=== PATIENT | male | born 1950 | race Caucasian/White ===

== ENCOUNTER → 2017-01-07 | Outpatient (CLI) | payer MEDICARE ==
[~2017-01-07] MED LIST: CIPR500T3 PO; GLIP2.5T6 PO; HYDR-3713 PO; JANU50TA25 PO; LISI-538 PO; OMEP20CA3 PO; PERC5TAB6 PO; POTA4.25 PO; PRAV20TA2 PO; TYLE325C PO; VIAG100T PO; janumet OR; potassium OR
== END ==
LOC: M LAB 11:41
PROVIDERS: ATTEND Family Medicine
DX: E11.9 Type 2 diabetes mellitus without complications (principal)

== ENCOUNTER → 2017-01-07 | Outpatient (CLI) | payer MEDICARE ==
[2017-01-07 12:21] LABS: MEAN CORPUSCULAR HEMOGLOBIN 31.4 pg (27.0-33.0); MEAN CORPUSCULAR VOLUME 87.2 fl (80.0-96.0); RED CELL DISTRIBUTION WIDTH 13.1 % (11.5-14.5); WHITE BLOOD COUNT 4.8 K/mm3 (4.0-10.0)
[2017-01-07 12:24] LABS: INR 0.99
--- NOTE | 2017-01-07 12:50 | REP ---
Chest two views HISTORY: Hypertension Comparison: 05/05/2016 The lungs are clear. The heart is normal in size. The pulmonary vasculature is normal in appearance. Degenerative change is present in the thoracic spine. IMPRESSION: No acute disease. Signed by Norberto Painter MD 01/07/2017 12:41 P
[2017-01-07 12:54] LABS: ALBUMIN 4.3 GM/DL (3.2-5.2); ALBUMIN/GLOBULIN RATIO 1.43 (1.00-1.93); BILIRUBIN,TOTAL 0.9 MG/DL (0.2-1.0); CREATININE FOR GFR 1.43 MG/DL (0.70-1.30); GLOMERULAR FILTRATION RATE 52.7 (>49); TOTAL PROTEIN 7.3 GM/DL (6.4-8.2)
[2017-01-07 13:05] LABS: POTASSIUM SERUM 5.2 MEQ/L (3.5-5.1)
--- NOTE | 2017-01-07 22:28 | ECGEPIP ---
Stationary ECG Study [facility] Test Date: 2017-01-07 Pat Name: ANKUR MYERS Department: Room: - Gender: M Winemaker: : 1950 Requested By: Dixie Schofield Order Number: [id number] Reading MD: Srinivasa Mancuso Measurements Intervals [place] Rate: 52 P: 18 MN: 187 QRS: 28 QRSD: 125 T: 210 QT: 403 QTc: 376 Interpretive Statements Sinus bradycardia with occasional PVC IVCD Probable LVH with repolarization abnormality Cannot exclude prior anterior wall myocardial infarction Comparison tracing not available Electronically Signed On 01-07-2017 22:28:24 EDT by Srinivasa Mancuso
== END ==
LOC: M ADMPAT 10:22
PROVIDERS: ATTEND Orthopaedic Surgery
DX: Z01.818 Encounter for other preprocedural examination (principal); C61 Malignant neoplasm of prostate; E11.9 Type 2 diabetes mellitus without complications; M16.12 Unilateral primary osteoarthritis, left hip; Z79.899 Other long term (current) drug therapy

== ENCOUNTER → 2017-01-07 | Outpatient (CLI) | payer MEDICARE | LOC: M LAB 10:43 | PROVIDERS: ATTEND Urology | DX: C61 Malignant neoplasm of prostate (principal) ==

== ENCOUNTER → 2017-01-17 | Outpatient (CLI) | payer MEDICARE ==
[~2017-01-17] MED LIST changes: +COUM2.5T11 PO; +RANI15TA PO
--- NOTE | 2017-01-20 09:38 | SLEEPCENT ---
DATE OF STUDY: 01/17/2017 ORDERED BY: Estela Macario Nocturnal polysomnography was performed for evaluation of sleep apnea syndrome symptoms in this patient with a history of snoring and excess somnolence. 8 hours and 23 minutes of data were reviewed. There were 417 minutes of sleep identified. Sleep latency was prolonged at 41 minutes. Rapid eye movement (REM) latency was normal at 94 minutes. Sleep architecture was fairly good. There was some fragmentation early in the study, but 5 REM periods were idenified. Overall sleep efficiency was 83.7%. EKG showed a sinus rhythm with PVCs. Average heart rate 45 beats per minute. Rate ranged 40-62 beats per minute. EEG showed reasonably normal waveforms for awake and sleep. There were 174 respiratory events identified at 10 seconds in duration or greater for an apnea-hypopnea index of 25, the events were primarily obstructive, not exclusive to sleep stage, more frequent, but not exclusive to spine posture. Arousals from respiratory events occurred only 9.6 times per hour. Oxygen desaturations were seen, however, into the 70s. There was also some limb activity identified, but arousals from limb events were few. IMPRESSION: Moderate to severe obstructive sleep apnea syndrome (G47.33). Apnea-hypopnea index 25.0. RECOMMENDATION: The patient should be encouraged to return to the sleep disorder center for pressure therapy, in the interim alcohol and sedative avoidance should be practiced and cautioned exercised during the operation of motor vehicles. cc: Dixie Muir
== END ==
LOC: M SLEEP 20:00
PROVIDERS: ATTEND Nurse Practitioner Adult Health
DX: G47.33 Obstructive sleep apnea (adult) (pediatric) (principal)

== ENCOUNTER 2017-01-19 10:47 | Inpatient (IN) | payer MEDICARE ==
[2017-01-07 10:58] VITALS: BP 152/85
--- NOTE | 2017-01-13 13:30 | HPE ---
DATE OF ADMISSION: 01/19/2017 ATTENDING PHYSICIAN: Dr. Chandu Muir CHIEF COMPLAINT: Left hip pain and stiffness. HISTORY: This is a pleasant, 66-year-old male patient with progressively worsening left hip pain and stiffness. He has failed to improve with conservative management. He has pain with weightbearing activities and activities of daily living. He has elected for surgery for his continued symptoms. He has consented for a left total hip arthroplasty by Dr. Muir. X-rays of his left hip notable for end-stage degenerative changes of the left hip. Medical optimization, Dr. Gonzalez, not present for review today. ALLERGIES: SULFA MEDICATIONS. CURRENT MEDICATIONS: Include: - lidocaine 5%, apply as needed - hydrocodone 5/325 as needed for pain - Prilosec 20 mg 1 tablet every other day - lisinopril 20 mg 1 tablet in the evening - glipizide extended release 2.5 mg 1 tablet in the evening - pravastatin 20 mg 1 tablet every day - Janumet mg 1 tablet twice a day MEDICAL HISTORY: Includes myf-usharue-[id number] diabetes, hypertension, gastric reflux disease, elevated cholesterol, chronic incontinence, history of prostate cancer. SURGICAL HISTORY: Includes removal of his prostate and a vasectomy. SOCIAL HISTORY: He does not smoke. He does not use alcohol. He is currently retired. FAMILY HISTORY: Noncontributory. REVIEW OF SYSTEMS: Denies fever or chills. Denies chest pain, shortness breath or cough. Denies difficulty breathing. Denies abdominal pain. Notes chronic incontinence since his prostate surgery. Denies recent upper respiratory infection (URI) or urinary tract infection (UTI) symptoms. Has persistent pain in his left hip. He has pain with weightbearing activities on the left side. Denies nausea or vomiting. PHYSICAL EXAMINATION: Today reveals a well-nourished, well-developed, alert male patient. He ambulates with a slow gait. He favors his left side. Exam of the left hip reveals irritability on both internal and external rotation. There is decreased internal and external rotation, particularly decreased external rotation. The skin is intact. No erythema, edema or ecchymosis. He can sensate light touch in the left lower extremity. Neck is supple without adenopathy or jugular venous distention (JVD). Lungs are clear to auscultation, without rales or wheeze. Heart: Regular rate and rhythm. Abdomen: Bowel sounds are present. Current vital signs: Height 74 inches, weight 230 pounds. Temperature 97.8, blood pressure 129/80, pulse 69, respirations 16. LABORATORY DATA: PT is 13.2, is INR 0.99. Urine culture: No growth. Nasal culture: Normal handy. Urinalysis: Within normal limits. Glucose 122, BUN 29, creatinine 1.43, sodium 137, potassium 5.2. WBC count of 4.8, RBC count of 4.5, hemoglobin 14.3, hematocrit 39.8. Chest x-ray: No acute cardiopulmonary process noted. EKG: Sinus bradycardia with occasional PVCs. IMPRESSION: Symptomatic osteoarthritis of the left hip. PLAN: Consented for left total hip arthroplasty by Dr. Muir.
--- NOTE | 2017-01-16 14:50 | CR ---
DATE OF CONSULTATION: 01/16/2017 PREOPERATIVE EVALUATION CONSULTATION CHIEF COMPLAINT: Left hip pain. CONSULTING PHYSICIAN: Dr. Stefano Gonzalez SURGEON: Dr. Dixie Muir of [facility] PLANNED SURGERY: Total left hip replacement. OTHER CONSULTANTS: [facility] regarding risk of obstructive sleep apnea. DATE OF SURGERY: 01/19/2017 PAT: Completed on 01/07/2017 HISTORY OF PRESENT ILLNESS: Very pleasant 66-year-old gentleman who presents today for preoperative evaluation and consultation for planned left total hip replacement to be completed at [facility]. It is notable that the patient exerted himself over 3 METS on a regular basis prior to having increase in pain in his left hip and on evaluation felt to be appropriate for a total hip replacement. The patient did retired on 12/23/2016. He notes that he has been focusing more on his health since intermediate and the pain significantly limits his quality of life. Overall, the patient notes that his medical issues appear to be stable with the exception of his hip pain. He does have a question of obstructive sleep apnea and is being evaluated by [facility]. This is expected to happen prior to surgical intervention. Regarding his cardiac history, he does have a left bundle branch block on his EKG; however, this was fully evaluated with a nuclear stress test on 02/18/2016, which was felt to be low risk. He also had an echocardiogram at the same time, which showed minor changes, including possible grade 1 left ventricular diastolic dysfunction and mild left ventricular hypertrophy. However, again, he underwent cardiac consultation and is felt to be appropriate for surgery, as he again is now at this point in time. He does not have any chest pain or other new issues or concerns. He otherwise is not wheezing or have any acute respiratory issues. He has not had issues with anesthesia in the past. Again, he denies any other new symptoms or concerns. Most recent hemoglobin A1/c was also controlled at 6.8. He does watch his diet regarding his blood sugars. He does watch his diet regarding his blood sugars. He does have some chronic kidney disease with a GFR which is only minimally decreased at approximately 50. He does have a history of prostate cancer, status post prostatectomy and manages his lipids with pravastatin. Blood pressures have been extremely well controlled. Again, he denies high and low blood sugars. PAST MEDICAL HISTORY: 1. Type 2 diabetes -- last hemoglobin A1/c was 6.8, well controlled. 2. Left bundle branch block -- stress testing and echocardiogram showed low risk in 2016. 3. History of prostate cancer, status post prostatectomy with Dr. Woods on 05/13/2016. 4. Gastroesophageal reflux disease (GERD). Has done well with Zantac. 5. Chronic kidney disease, generally stable, baseline GFR approximately 50. 6. Hypertension. 7. Hyperlipidemia. PAST SURGICAL HISTORY: 1. Prior vasectomy. 2. Robotic prostatectomy on 05/13/[address] Woods. 3. In 2016 a left ureteroscope and stent placement. MEDICATIONS: - multivitamin taken daily - Zantac 150 mg by mouth twice a day (prior took 20 mg of Prilosec twice a day) - Viagra 100 mg as needed - pravastatin 20 mg daily - lisinopril 20 mg daily - Janumet XR one tablet twice a day - Flomax 0.4 mg daily ALLERGIES: SULFA causes hives. SOCIAL HISTORY: The patient lives with his Molly and they have three children. 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 He previously was involved in riding his [employer] but had to sell it due to osteoarthritis. The patient has never smoked. He occasionally drinks beer. FAMILY HISTORY: His father is alive over 90 and has chronic obstructive pulmonary disease (COPD) and uses oxygen, continues to smoke. Mother from surgical abdomen at age 80 after hip surgery. All three children are healthy. REVIEW OF SYSTEMS: As per history of present illness. Otherwise 10-system review is completely negative. PHYSICAL EXAMINATION: VITAL SIGNS: Blood pressure 124/64, pulse 62, height is 6 feet 2 inches and weighing 233 pounds. Oxygen saturation is 98% on room air. Body Mass Index (BMI) of 29.9. GENERAL: He appears well. No acute distress. Nontoxic. Alert and oriented times three. No signs of acute issues. HEENT: Pupils are equal, round and reactive to light and accommodation. Extraocular motions intact. No lesions of the lid or conjunctivae. Oral cavity and oropharynx are benign. Nares are benign. Tympanic membranes are benign. NECK: Supple. No lymphadenopathy or thyromegaly. HEART: Regular rate and rhythm. S1, S2. There are no murmurs, rubs or gallops. LUNGS: Clear to auscultation bilaterally. No rales, rhonchi or wheezes. ABDOMEN: Soft, nontender, nondistended. EXTREMITIES: No clubbing, cyanosis or edema. NEUROLOGIC: Exam is nonfocal. Good strength and sensation throughout. He does have an abnormal gait due to pain in his left hip. Otherwise, good cerebellar function and balance. PREOPERATIVE LABORATORIES: Completed at [facility], reviewed. EKG also showed left bundle branch block. No change when compared to previous on file. ASSESSMENT AND PLAN: 1. Preoperative evaluation and consultation. The patient has a number of medical issues, as outlined; however, appears to be optimized for surgical intervention planned at [facility]. The patient understands the risk of surgery. This is an intermediate risk surgery in an intermediate risk patient. Again, before surgical intervention, there appears to be a referral from [facility] as well, which we will evaluate for obstructive sleep apnea. If there are new problems or issues, he will let me know. 2. Pain in the left hip. The patient apparently has significant osteoarthritis and is undergoing total hip replacement and looks forward to this. 3. Gastroesophageal reflux disease (GERD). Has been using proton pump inhibitor every other day but does note symptoms if he misses it. He is going to work on weaning to Zantac 150 mg twice a day instead. He will let us know how he is doing. 4. Type 2 diabetes. This has been controlled. Last hemoglobin A1/c was 6.8. He is going to hold his glipizide and Janumet the night prior to surgery and will need his blood sugars watched closely perioperatively. 5. Hypertension. The patient had excellent blood pressure control on present medication, we will continue. 6. Left bundle branch block. This is known. He had evaluated noted above and we will monitor. 7. Hyperlipidemia. Doing well on pravastatin. We will monitor. 8. History of prostate cancer. No evidence of recurrence. Had seen Dr. Woods and we will continue this as well as his other medications for urinary and erectile dysfunction issues. 9. Snoring. The patient is being evaluated by [facility] for possible sleep apnea. We will continue to monitor. 10. Ongoing care. I am going to see him again in three months with CMP, lipids, hemoglobin A1/c and a CBC. If there are new issues or concerns sooner, or if there is change in his status, he will let me know.
[~2017-01-19] VITALS: Ht 190.5 cm; Wt 103.0 kg
[2017-01-19] VITALS (7 sets, daily range): BP systolic 115–151; BP diastolic 72–89; O2SAT 97
[~2017-01-19 10:47] MED LIST changes: -COUM2.5T11 PO; +PERC5TAB12 PO; -PERC5TAB6 PO; -RANI15TA PO; +ceFAZolin 1GM INJ (J0690) As Ordered ONE
[2017-01-19] MEDS ORDERED: LR 1,000 ML IV SCH ×3 (11:00→18:00)
[2017-01-19] MEDS ORDERED: LR 1,000 ML IV ONE (11:00)
[2017-01-19] MEDS ORDERED: ACETAMINOPHEN 500 MG TAB PO ONE (11:00)
[2017-01-19] MEDS ORDERED: RANI15TA PO (11:22)
[2017-01-19] MEDS ORDERED: TRANEXAMIC ACID 100 MG/ML 10ML VIAL As Ordered ONE (13:23)
[2017-01-19] MEDS ORDERED: EPINEPHrine INJ 1 MG/ML 1ML AMP As Ordered ONE (13:23)
[2017-01-19] MEDS ORDERED: ePHEDrine SULFATE 25 MG/5 ML(5MG/ML) SYRINGE As Ordered ONE ×2 (14:31→15:14)
[2017-01-19] MEDS ORDERED: PROPOFOL 200 MG/20 ML VIAL As Ordered ONE ×4 (14:31→16:39)
[2017-01-19] MEDS ORDERED: MIDAZOLAM INJ 2 MG/2 ML VIAL (J2250) As Ordered ONE (14:31)
[2017-01-19] MEDS ORDERED: fentaNYL 100 MCG/2 ML INJECTION (J3010) As Ordered ONE ×2 (14:31→16:20)
[2017-01-19] MEDS ORDERED: GLYCOPYRROLATE INJ 0.2 MG/ML 2 ML VIAL As Ordered ONE (14:57)
[2017-01-19] MEDS ORDERED: MORPHINE 1MG/ML IN 0.9% NACL 100ML IV BAG As Ordered ONE (16:29)
[2017-01-19] MEDS ORDERED: ONDANSETRON 4MG/2ML VIAL (J2405) IV PRN ×2 (17:45→18:00)
[2017-01-19] MEDS ORDERED: PERCOCET 5MG/325MG TAB PO PRN (17:45)
[2017-01-19] MEDS ORDERED: fentaNYL 100 MCG/2 ML INJECTION (J3010) IV PRN (17:45)
[2017-01-19] MEDS ORDERED: HYDROmorphone HCL 1 MG/ML SYRINGE (J1170) IV PRN (17:45)
[2017-01-19] MEDS ORDERED: FLEET ENEMA PR PRN (18:00)
[2017-01-19] MEDS ORDERED: ACETAMINOPHEN TAB 650MG DOSE (2X325MG) PO PRN (18:00)
[2017-01-19] MEDS ORDERED: NALOXONE INJ 0.4 MG/1 ML VIAL (J2310) IV PRN (18:00)
[2017-01-19] MEDS ORDERED: NALBUPHINE HCL 10 MG/ML AMP (J2300) IV PRN (18:00)
[2017-01-19] MEDS ORDERED: diphenhydrAMINE INJ 50MG/ML VIAL (J1200) IV PRN (18:00)
[2017-01-19] MEDS ORDERED: EPIDURAL/PCA KEYS XX PRN (18:00)
[2017-01-19] MEDS ORDERED: MORPHINE 1MG/ML IN 0.9% NACL 100ML IV BAG IV PRN (18:00)
[2017-01-19] MEDS ORDERED: WARFARIN SOD 5 MG TAB PO SCH (21:00)
[2017-01-20 03:00] VITALS: BP 134/80
--- NOTE | 2017-01-20 05:25 | CR.PDOC ---
[facility] Consultation Consultation DATE OF CONSULTATION: PRIMARY CARE PHYSICIAN: Stefano Gonzalez REFERRING PROVIDER: Chandu Muir ATTENDING PHYSICIAN: Chandu Muir REASON FOR CONSULTATION/CHIEF COMPLAINT:, Medical management. HISTORY OF PRESENT ILLNESS: [ 66-year-old male status post left total hip replacement yesterday was consulted for postoperative medical management. Patient had severe osteoarthritis part last 5 years which was getting worse and this and ultimately get the needed hip replacement done yesterday. Denies any fever, chills, lightheadedness, dizziness. He does not have any chest pain or other new issues He does have a history of prostate cancer, status post prostatectomy and manages his lipids with pravastatin. PAST MEDICAL HISTORY: GERD, hypertension, hyperlipidemia, chronic kidney disease PAST SURGICAL HISTORY: Procedure prostatectomy MEDICATIONS: - multivitamin taken daily - Zantac 150 mg by mouth twice a day (prior took 20 mg of Prilosec twice a day) - Viagra 100 mg as needed - pravastatin 20 mg daily - lisinopril 20 mg daily - Janumet XR one tablet twice a day - Flomax 0.4 mg daily ALLERGIES: SULFA causes hives. SOCIAL HISTORY: Lives with his family, independent for ADLs. Nonsmoker. no Alcohol or drugs. FAMILY HISTORY: His father is alive over 90 and has chronic obstructive pulmonary disease (COPD) and uses oxygen, continues to smoke. Mother from surgical abdomen at age 80 after hip surgery. All three children are healthy. REVIEW OF SYSTEMS: No fever or cough. No chest pain or palpitation. No diarrhea or constipation. No cough or shortness of breath. No focal weakness. No depression or suicidal ideation. No rash or ulcers PHYSICAL EXAMINATION: No apparent distress. Vital signs are stable. PERRLA, EOMI , no crackles or wheezes. S1, S2 regular. No murmurs, thrills or gallops. Abdomen soft, nontender. Extremity no edema or cyanosis. Left extremity, not able to move due to a status post surgery ASSESSMENT/PLAN: 1. 66-year-old male, history of osteoarthritis, presented with the elective total hip replacement on left side. 2. Total hip replacement = anticoagulation and weightbearing as per orthopedic physician Diabetes mellitus. Continue sliding scale insulin Hypertension. Continue with the lisinopril. Vital Signs/I&O Vital Signs Date Time Temp Pulse Resp B/P (MAP) Pulse Ox O2 Delivery O2 Flow Rate FiO2 6/27/17 03:00 98.3 64 14 134/80 (98) 98 Nasal Cannula 2.0 I&O- Last 24 Hours up to 6 AM 01/20/17 06:00 Intake Total 3165 ml Output Total 850 ml Balance 2315 ml Laboratory Data Labs 24H Laboratory Tests 2 01/19/17 18:54: Bedside Glucose (Misc Panel) 162H 01/19/17 19:46: Bedside Glucose (Misc Panel) 152H CBC/BMP Laboratory Tests 01/19/17 11:06 Allergies Coded Allergies: Sulfa Antibiotics (Verified Allergy, Intermediate, hives, 01/19/17) Home Medications Scheduled (Tylenol) 325 Mg Cap, 650 MG PO BID, (Reported) Glipizide (Glipizide ER) 2.5 Mg Tab, 2.5 MG PO QPM, (Reported) Lisinopril (Lisinopril) 20 Mg Tab, 20 MG PO QPM, (Reported) Potassium Citrate (Potassium Citrate ER) 15 Meq Tab, 2 TAB PO BID, (Reported) Pravastatin Sodium (Pravastatin Sodium) 20 Mg Tab, 20 MG PO DAILY, (Reported) Ranitidine Hcl (Zantac) 150 Mg Tab, 1 TAB PO BID, (Reported) Sitagliptin/Metformin (Janumet Xr 50-1000 mg) 1 Tab Tab, PO BID, #180 (Reported) CHRISTINA ALDRIDGE MD Jan 20, 2017 05:25
[2017-01-20] MEDS ORDERED: ONDANSETRON 4 MG TAB (S0181) PO PRN (06:45)
[2017-01-20 07:00] VITALS: BP 133/84
[2017-01-20 07:33] LABS: MEAN CORPUSCULAR HEMOGLOBIN 31.2 pg (27.0-33.0); MEAN CORPUSCULAR HGB CONC 35.5 g/dl (32.0-36.5); MEAN CORPUSCULAR VOLUME 87.9 fl (80.0-96.0); RED CELL DISTRIBUTION WIDTH 13.1 % (11.5-14.5); WHITE BLOOD COUNT 9.4 K/mm3 (4.0-10.0)
[2017-01-20 07:41] LABS: INR 1.16
[2017-01-20 07:42] LABS: ANION GAP 7 MEQ/L (8-16); BLOOD UREA NITROGEN 17 MG/DL (7-18); CALCIUM LEVEL 8.1 MG/DL (8.8-10.2); CARBON DIOXIDE LEVEL 27 MEQ/L (21-32); CHLORIDE LEVEL 102 MEQ/L (98-107); CREATININE FOR GFR 1.27 MG/DL (0.70-1.30); GLOMERULAR FILTRATION RATE > 60.0 (>49); GLUCOSE, FASTING 247 MG/DL (80-110); POTASSIUM SERUM 4.7 MEQ/L (3.5-5.1); SODIUM LEVEL 136 MEQ/L (136-145)
[2017-01-20 10:00] VITALS: BP 143/84
[2017-01-20] MEDS: MIRALAX *UNIT DOSE* 17GM PACKET PO SCH (10:14)
[2017-01-20] MEDS: SENOKOT S TAB PO SCH ×2 (10:14→20:22)
[2017-01-20] MEDS: MOM 30ML SUSPENSION UDC PO SCH (10:14)
[2017-01-20] MEDS: PERCOCET 5MG/325MG TAB PO PRN ×2 (10:15→17:05)
[2017-01-20] MEDS: CHLORASEPTIC SPRAY MT PRN (10:15)
[2017-01-20 10:29] VITALS: O2SAT 96
--- NOTE | 2017-01-20 10:30 | RO ---
DATE OF PROCEDURE: 01/19/2017 PREPROCEDURE DIAGNOSIS: Left hip degenerative arthritis. POSTPROCEDURE DIAGNOSIS: Left hip degenerative arthritis. PROCEDURE: Left total hip arthroplasty using a size 8 [place] stem, high offset with a 1.5 neck and a 36 mm ball with a 56 mm Gription cup with a 36 neutral liner. Prosthesis made by [employer]. SURGEON: Dr. Dixie Muir. CURBER: Mr. Corona Diaz PA-C ANESTHESIA: Spinal. SPECIMENS: Femoral head. COMPLICATIONS: None. ESTIMATED BLOOD LOSS: 300 mL. DESCRIPTION OF PROCEDURE: Antibiotics were given intravenously preoperatively. Then a successful spinal anesthetic was induced. A Ryan catheter was placed and he was placed in an lateral decubitus position with a Shawmut hip positioner utilized. Down-leg well padded, specially the femoral peroneal nerve on the down leg and an axillary roll ws utilized. His left hip area was then carefully prepped and draped in the usual sterile fashion. After an appropriate time out, the longitudinal incision was made for a direct lateral approach to the hip slightly curved obliquely. Bovie catheter was used to coagulate the crossing vessels down to the tensor fascia. The tensor fascia lateral muscle actually was very hypertrophic and most of the fascia was seen to be mainly muscle such that we were dividing mainly through muscular tissue down to near the gluteus maximum insertion. His tensor fascia was excessively tight anteriorly. But eventually we were able to understand the anatomy and then split the gluteus medias in the anterior one-third, posterior two-third junction and then divided the underlying gluteus minimus and anterior hip capsule, carefully dissected the tissues off the proximal femurs and externally rotated the hip. At first it was quite difficult to dislocation this hip because it actually turns out he had circumferential rim osteophytes, especially anteriorly which made it very difficult for us to dislocate the hip. But eventually I had to use an osteotome and remove some of the either calcified labrum or rim osteophytes from within the arthrotomy incision. It was difficulty to do so but eventually by using the curved osteotome and the rongeurs, we were able to remove the bony impingement such that I could dislocate the hip anteriorly and place the leg into a leg bag. The piriformis fossa was defined and the starter reamer placed followed by the canal finding reamer. The eventually we began reaming up to a size #8 reamer proximal neck. Osteotomy of the femur was then performed and we broached up to a size 8 eventually. He had some abnormal anatomy also no the neck of the femur. It was very widened and thickened. But eventually we were able to established our orientation and get the broach seated properly. Then we had some difficulty again also exposing the acetabulum. We had to perform a labral excision 360 degrees and then the inferior capsule had to be released and subperiosteal dissection around the capsule on the capsular attachments and proximal femur had to be utilized in order to mobilize the femur enough so that we access the acetabulum to begin reaming. We were about a fingerbreadth above the lesser trochanter by direct palpation. But eventually we were able to get exposure by actually flexing the knee and keep it in adduction. Them we began reaming beginning with a 48 mm reamer advanced up to a 55. A trial 56 actually fit nicely but there was a very large anterior osteophyte as well as inferior osteophyte. But eventually, we were able to get our orientation using the extramedullary jig to help us set and determine our abduction and version. We copiously pulsatile lavaged out the area, irrigated out the acetabulum and then used the 56 Gription cup with three holes in case we needed a screw fixation. The cup was implanted and it fit actually very snuggly and nicely in good position. The large anterior rim osteophytes were debrided and removed with a curve osteotome as well as inferiorly. The real polyethylene was then placed after we irrigate and began trialing with a #8 broach. The 1.5 standard offset stem showed that we actually had fairly good soft tissue tension in terms of telescoping but he needed better clearance anteriorly. Because as we flexed adduction and internally rotated the hip, he tended to dislocate posteriorly. Thus, there was no impingement with extension and external rotation, actually just barely touched this. A higher offset neck was trialled and this gave better clearance. He could actually adduct with flexion beyond 90 degrees with internal rotation to about 35 degrees before he would impinge. Again, there was minimal telescoping so I did not think we needed to increase his leg length. So we elected to go with that size prosthesis. We removed the trial broach and copiously irrigated out the proximal femoral canal, introduced the #8 femoral stem. This seated nicely. We irrigated again and placed the 56 mm ball, impacted it, and then reduced the hip. We copiously irrigated of course before we did reduce the hip again. Then again he was brought though a range of motion. He was very stable in extension, external rotation, and flexion and internal rotation up to about 30 degrees internal rotation. We then carefully began closing the gluteus minimus and minimus back anatomically with several interrupted #1 PDS sutures, irrigating between layers. Then we closed the tensor fascia with severe interrupted #1 PDS sutures irrigating between layers. We then closed the deep subdermal tissues with interrupted #2-0 PDS sutures. The skin was closed with dot, covered with adaptic and a dry sterile bulking dressing. He was then turned supine and transferred to the recovery room in stable condition. There were no intraoperative complications. Mr. Corona Diaz was critical to the success of this procedure, as it was actually quite a difficult procedure, by helping me manipulate the leg helping to provide appropriate soft tissue retraction at the appropriate time such that I could perform the operating smoothly and efficiently. Dr. Agusto Merritt also scrubbed in for a time to assist.
[2017-01-20] MEDS ORDERED: GLUCAGON FOR INJ 1 MG VIAL (J1610) SC PRN (11:45)
[2017-01-20] MEDS ORDERED: GLUCOSE 4 GM CHEW TABLET PO PRN (11:45)
[2017-01-20] MEDS ORDERED: DEXTROSE 50% 50 ML SYRINGE IV PRN (11:45)
--- NOTE | 2017-01-20 12:47 | REP ---
Clinical: Status post arthroplasty. Technique: AP and cross-table lateral views. Findings: The patient is status post left hip replacement with normal positioning and appearance to the femoral and acetabular components. Overlying postsurgical changes appreciated. Impression: Satisfactory left hip replacement radiographs. Signed by Alf Angel MD 01/20/2017 12:39 P
[2017-01-20] MEDS: FAMOTIDINE 20 MG TAB PO SCH ×2 (12:54→20:21)
[2017-01-20] MEDS: PRAVASTATIN 20 MG TAB PO SCH (12:54)
[2017-01-20] MEDS: HumaLOG INSULIN (NovoLOG) PER UNIT SC SCH ×3 (12:55→20:28)
[2017-01-20 14:00] VITALS: BP 139/71
--- NOTE | 2017-01-20 16:21 | IPNPDOC ---
Subjective Date Seen The patient was seen on 01/20/17. Subjective Chief Complaint/HPI The patient is a 66-year-old male admitted with a reason for visit of Arthritis Left Hip. General: Denies: Chills, Night Sweats Constitutional: Denies: Chills, Fever Eyes: Denies: Pain, Vision change ENT: Denies: Head Aches, Ear Pain Skin: Denies: Rash, Lesions Pulmonary: Denies: Dyspnea, Cough Cardiovascular: Denies: Chest Pain, Palpitations Gastrointestinal: Denies: Nausea, Vomiting, Abdominal Pain Genitourinary: Denies: Dysuria, Frequency Objective Physical Examination General Exam: Positive: Alert, Cooperative, No Acute Distress ENT Exam: Positive: Atraumatic, Mucous membr. moist/pink Neck Exam: Negative: JVD Chest Exam: Positive: Clear to auscultation, Normal air movement Heart Exam: Positive: Rate Normal, Normal S1, Normal S2 Abdomen Exam: Positive: Soft, Negative: Tenderness Extremity Exam: Positive: Other (left hip with limited range of motion secondary to recent surgery. Neurovascularly intact distally.) Psych Exam: Positive: Oriented x 3 Assessment /Plan Plan/VTE VTE Prophylaxis Ordered?: Yes Plan S/P Left Hip Replacement Pain Mgmt, DVT prophylaxis as per surgery Hypertension Cont Lisinopril Diabetes Mellitus Continue insulin sliding scale Dyslipidemia Continue statin GERD Pepcid VS, I&O, 24H, Fishbone Vital Signs/I&O Vital Signs Date Time Temp Pulse Resp B/P (MAP) Pulse Ox O2 Delivery O2 Flow Rate FiO2 01/20/17 14:00 98.8 85 15 139/71 (93) 97 Room Air 01/20/17 07:00 2.0 I&O- Last 24 Hours up to 6 AM 01/20/17 06:00 Intake Total 3405 ml Output Total 1250 ml Balance 2155 ml Laboratory Data 24H LABS Laboratory Tests 2 01/19/17 18:54: Bedside Glucose (Misc Panel) 162H 01/19/17 19:46: Bedside Glucose (Misc Panel) 152H 01/20/17 07:11: Prothrombin Time 14.9H, Prothromb Time International Ratio 1.16, Anion Gap 7L, Glomerular Filtration Rate > 60.0, Blood Urea Nitrogen 17, Creatinine 1.27, Sodium Level 136, Potassium Level 4.7, Chloride Level 102, Carbon Dioxide Level 27, Calcium Level 8.1L 01/20/17 11:25: Bedside Glucose (Misc Panel) 256H CBC/BMP Laboratory Tests 01/20/17 07:11 Red Blood Count 3.86 L, Mean Corpuscular Volume 87.9, Mean Corpuscular Hemoglobin 31.2, Mean Corpuscular Hemoglobin Concent 35.5, Red Cell Distribution Width 13.1, Calcium Level 8.1 L STEVENSON MAJOR MD Jan 20, 2017 16:21
[2017-01-20] MEDS ORDERED: WARFARIN SOD 5 MG TAB PO ONE (17:00)
[2017-01-20] MEDS: LISINOPRIL 20 MG TAB PO SCH (20:22)
[2017-01-20 22:00] VITALS: BP 128/72
[2017-01-21 06:00] VITALS: BP 99/57
[2017-01-21 07:03] LABS: INR 1.51
[2017-01-21 07:04] LABS: MEAN CORPUSCULAR HEMOGLOBIN 31.2 pg (27.0-33.0); MEAN CORPUSCULAR HGB CONC 35.9 g/dl (32.0-36.5); RED CELL DISTRIBUTION WIDTH 12.8 % (11.5-14.5); WHITE BLOOD COUNT 10.7 K/mm3 (4.0-10.0)
[2017-01-21 07:06] LABS: CALCIUM LEVEL 8.3 MG/DL (8.8-10.2); CREATININE FOR GFR 1.36 MG/DL (0.70-1.30); GLOMERULAR FILTRATION RATE 55.8 (>49); POTASSIUM SERUM 4.4 MEQ/L (3.5-5.1)
[2017-01-21] MEDS: MIRALAX *UNIT DOSE* 17GM PACKET PO SCH (08:07)
[2017-01-21] MEDS: MOM 30ML SUSPENSION UDC PO SCH (08:07)
[2017-01-21] MEDS: PRAVASTATIN 20 MG TAB PO SCH (08:08)
[2017-01-21] MEDS: FAMOTIDINE 20 MG TAB PO SCH ×2 (08:08→21:12)
[2017-01-21] MEDS: SENOKOT S TAB PO SCH ×2 (08:08→21:12)
[2017-01-21] MEDS: HumaLOG INSULIN (NovoLOG) PER UNIT SC SCH ×4 (08:08→21:00)
[2017-01-21] MEDS: PERCOCET 5MG/325MG TAB PO PRN ×2 (08:08→21:13)
[2017-01-21] MEDS: CHLORASEPTIC SPRAY MT PRN (08:09)
[2017-01-21 09:04] VITALS: O2SAT 93
--- NOTE | 2017-01-21 12:19 | IPNPDOC ---
Subjective Date Seen The patient was seen on 01/21/17. Subjective Chief Complaint/HPI The patient is a 66-year-old male admitted with a reason for visit of Arthritis Left Hip. General: Denies: Chills, Night Sweats Constitutional: Denies: Chills, Fever Eyes: Denies: Pain, Vision change ENT: Denies: Head Aches, Ear Pain Skin: Denies: Rash, Lesions Pulmonary: Denies: Dyspnea, Cough Cardiovascular: Denies: Chest Pain, Palpitations Gastrointestinal: Denies: Nausea, Vomiting Genitourinary: Denies: Dysuria, Frequency Objective Physical Examination General Exam: Positive: Alert, Cooperative, No Acute Distress ENT Exam: Positive: Atraumatic, Mucous membr. moist/pink Neck Exam: Negative: JVD Chest Exam: Positive: Clear to auscultation, Normal air movement Heart Exam: Positive: Rate Normal, Normal S1, Normal S2 Abdomen Exam: Positive: Soft, Negative: Tenderness Extremity Exam: Positive: Other (left hip with limited range of motion secondary to recent surgery. Neurovascularly intact distally.) Psych Exam: Positive: Oriented x 3 Assessment /Plan Plan/VTE VTE Prophylaxis Ordered?: Yes Plan S/P Left Hip Replacement Pain Mgmt, DVT prophylaxis as per surgery Hypertension Cont Lisinopril Diabetes Mellitus Continue insulin sliding scale Dyslipidemia Continue statin GERD Pepcid VS, I&O, 24H, Fishbone Vital Signs/I&O Vital Signs Date Time Temp Pulse Resp B/P (MAP) Pulse Ox O2 Delivery O2 Flow Rate FiO2 01/21/17 09:08 93 Room Air 01/21/17 08:38 14 01/21/17 06:00 98.4 74 99/57 (71) 01/20/17 07:00 2.0 I&O- Last 24 Hours up to 6 AM 01/21/17 06:00 Intake Total 1080 ml Output Total 1525 ml Balance -445 ml Laboratory Data 24H LABS Laboratory Tests 2 01/20/17 16:41: Bedside Glucose (Misc Panel) 211H 01/20/17 20:07: Bedside Glucose (Misc Panel) 175H 01/21/17 06:18: Prothrombin Time 18.3H, Prothromb Time International Ratio 1.51, Anion Gap 5L, Glomerular Filtration Rate 55.8, Blood Urea Nitrogen 20H, Creatinine 1.36H, Sodium Level 135L, Potassium Level 4.4, Chloride Level 100, Carbon Dioxide Level 30, Calcium Level 8.3L 01/21/17 11:06: Bedside Glucose (Misc Panel) 205H CBC/BMP Laboratory Tests 01/21/17 06:18 Red Blood Count 3.49 L, Mean Corpuscular Volume 87.0, Mean Corpuscular Hemoglobin 31.2, Mean Corpuscular Hemoglobin Concent 35.9, Red Cell Distribution Width 12.8, Calcium Level 8.3 L STEVENSON MAJOR MD Jan 21, 2017 12:19
[2017-01-21 14:00] VITALS: BP 117/59
[2017-01-21] MEDS ORDERED: WARFARIN SOD 7.5 MG TAB PO ONE (17:00)
[2017-01-21 21:00] VITALS: O2SAT 96
[2017-01-21 21:12] VITALS: BP 142/67
[2017-01-21] MEDS: LISINOPRIL 20 MG TAB PO SCH (21:12)
[2017-01-21 22:00] VITALS: BP 117/70
[2017-01-22 06:00] VITALS: BP 112/65
[2017-01-22 06:32] LABS: MEAN CORPUSCULAR HEMOGLOBIN 31.4 pg (27.0-33.0); MEAN CORPUSCULAR HGB CONC 36.2 g/dl (32.0-36.5); MEAN CORPUSCULAR VOLUME 86.8 fl (80.0-96.0); RED CELL DISTRIBUTION WIDTH 13.1 % (11.5-14.5); WHITE BLOOD COUNT 7.8 K/mm3 (4.0-10.0)
[2017-01-22 06:40] LABS: INR 1.65
[2017-01-22 06:41] LABS: ANION GAP 3 MEQ/L (8-16); BLOOD UREA NITROGEN 20 MG/DL (7-18); CALCIUM LEVEL 8.3 MG/DL (8.8-10.2); CARBON DIOXIDE LEVEL 30 MEQ/L (21-32); CHLORIDE LEVEL 103 MEQ/L (98-107); CREATININE FOR GFR 1.24 MG/DL (0.70-1.30); GLOMERULAR FILTRATION RATE > 60.0 (>49); GLUCOSE, FASTING 178 MG/DL (80-110); POTASSIUM SERUM 4.5 MEQ/L (3.5-5.1); SODIUM LEVEL 136 MEQ/L (136-145)
[2017-01-22] MEDS ORDERED: COUM2.5T17 PO (07:28)
[2017-01-22] MEDS ORDERED: PERC5TAB12 PO (07:28)
[2017-01-22] MEDS: PERCOCET 5MG/325MG TAB PO PRN (07:29)
[2017-01-22] MEDS: HumaLOG INSULIN (NovoLOG) PER UNIT SC SCH (07:30)
[2017-01-22 08:00] VITALS: O2SAT 98
[2017-01-22] MEDS: MOM 30ML SUSPENSION UDC PO SCH (08:45)
[2017-01-22] MEDS: MIRALAX *UNIT DOSE* 17GM PACKET PO SCH (08:46)
[2017-01-22] MEDS: PRAVASTATIN 20 MG TAB PO SCH (08:46)
[2017-01-22] MEDS: SENOKOT S TAB PO SCH (08:46)
[2017-01-22] MEDS: FAMOTIDINE 20 MG TAB PO SCH (08:46)
--- NOTE | 2017-01-22 15:58 | IPNPDOC ---
Subjective Date Seen The patient was seen on 01/22/17. Subjective Chief Complaint/HPI The patient is a 66-year-old male admitted with a reason for visit of Arthritis Left Hip. General: Denies: Chills, Night Sweats Constitutional: Denies: Chills, Fever Eyes: Denies: Pain, Vision change ENT: Denies: Head Aches, Ear Pain Skin: Denies: Rash, Lesions Pulmonary: Denies: Dyspnea, Cough Cardiovascular: Denies: Chest Pain, Palpitations Gastrointestinal: Denies: Nausea, Vomiting Genitourinary: Denies: Dysuria, Frequency Objective Physical Examination General Exam: Positive: Alert, Cooperative, No Acute Distress ENT Exam: Positive: Atraumatic, Mucous membr. moist/pink Neck Exam: Negative: JVD Chest Exam: Positive: Clear to auscultation, Normal air movement Heart Exam: Positive: Rate Normal, Normal S1, Normal S2 Abdomen Exam: Positive: Soft, Negative: Tenderness Extremity Exam: Positive: Other (left hip with limited range of motion secondary to recent surgery. Neurovascularly intact distally.) Psych Exam: Positive: Oriented x 3 Assessment /Plan Plan/VTE VTE Prophylaxis Ordered?: Yes Plan S/P Left Hip Replacement Pain Mgmt, DVT prophylaxis as per surgery Chronic thrombocytopenia, stable The patient's platelet count has been noted to be within the 80,000-120,000 range since 2002 He has no bleeding at this time or complaints of easy bruising However, given that the patient will be on DVT prophylaxis with Coumadin-I did discuss the increased risk of bleeding with this, especially if his platelet count was to drift down further I have advised the patient to follow-up with his primary care physician within one week for further evaluation of his CBC in view of his concurrent anticoagulation use Hypertension Cont Lisinopril Diabetes Mellitus Continue insulin sliding scale Dyslipidemia Continue statin GERD Pepcid VS, I&O, 24H, Fishbone Vital Signs/I&O Vital Signs Date Time Temp Pulse Resp B/P (MAP) Pulse Ox O2 Delivery O2 Flow Rate FiO2 01/22/17 08:00 98 Room Air 01/22/17 07:59 14 01/22/17 06:00 98.2 69 112/65 (81) 01/20/17 07:00 2.0 I&O- Last 24 Hours up to 6 AM 01/22/17 05:59 Intake Total 2400 ml Output Total 1200 ml Balance 1200 ml Laboratory Data 24H LABS Laboratory Tests 2 01/21/17 16:57: Bedside Glucose (Misc Panel) 207H 01/21/17 19:57: Bedside Glucose (Misc Panel) 190H 01/22/17 06:14: Prothrombin Time 19.6H, Prothromb Time International Ratio 1.65, Anion Gap 3L, Glomerular Filtration Rate > 60.0, Blood Urea Nitrogen 20H, Creatinine 1.24, Sodium Level 136, Potassium Level 4.5, Chloride Level 103, Carbon Dioxide Level 30, Calcium Level 8.3L CBC/BMP Laboratory Tests 01/22/17 06:14 Red Blood Count 3.05 L, Mean Corpuscular Volume 86.8, Mean Corpuscular Hemoglobin 31.4, Mean Corpuscular Hemoglobin Concent 36.2, Red Cell Distribution Width 13.1, Calcium Level 8.3 L STEVENSON MAJOR MD Jan 22, 2017 15:58
--- NOTE | 2017-01-26 10:01 | DSES ---
DATE OF ADMISSION: 01/19/2017 DATE OF DISCHARGE: 01/22/2017 ATTENDING PHYSICIAN: Dr. Chandu Muir ADMITTING DIAGNOSIS: Osteoarthritis left hip. OTHER DIAGNOSES: 1. Left bundle branch block. 2. Iuv-wzykoif-dkhgcctsk diabetes. 3. Hypertension. 4. Gastric reflux disease. 5. Elevated cholesterol. 6. Chronic incontinence. 7. History of prostate cancer. 8. Chronic kidney disease. 9. Chronic thrombocytopenia. DISCHARGE DIAGNOSIS: Osteoarthritis left hip status post left total hip arthroplasty. OPERATION PERFORMED: Left total hip arthroplasty. HISTORY: This a pleasant, 66-year-old male patient with progressively worsening left hip pain and stiffness who failed to improve with conservative management. He was admitted for a left hip replacement electively on the left side. HOSPITAL COURSE: The patient was admitted on day of surgery, underwent a left total hip arthroplasty, which was uneventful. He did well in the postoperative period. His hospital course was without complications. He was up with physical therapy per their protocol. His pain was controlled. On day of discharge, he was doing well. Weightbearing as tolerated on his left lower extremity. He will use adjusted dose Coumadin and thromboembolic deterrent (FAREED) stockings for 30 days postoperatively for deep venous thrombosis (DVT) prophylaxis. He will use oral pain medications for pain control and he will resume his preoperative medications and diet. He was given instructions to include but not limited to wound monitoring and activity limitations. Please refer to the medical record for further detail. He will follow up in our office 10-14 days for surgical followup.
== END 2017-01-22 10:50 | disposition home health service (06) | DRG 470 ==
LOC: M OR 10:47 → M MS5PR 18:25
PROVIDERS: ADMIT Orthopaedic Surgery; ATTEND Orthopaedic Surgery
PROC: 0SRB04A Replacement of Left Hip Joint with Ceramic on Polyethylene Synthetic Substitute, Uncemented, Open Approach (ICD-10-PCS; principal; 2017-01-19 14:15)
DX: M16.12 Unilateral primary osteoarthritis, left hip (principal); Z88.2 Allergy status to sulfonamides; Z79.899 Other long term (current) drug therapy; E11.9 Type 2 diabetes mellitus without complications; I12.9 Hypertensive chronic kidney disease with stage 1 through stage 4 chronic kidney disease, or unspecified chronic kidney disease; K21.9 Gastro-esophageal reflux disease without esophagitis; E78.5 Hyperlipidemia, unspecified; Z85.46 Personal history of malignant neoplasm of prostate; I44.7 Left bundle-branch block, unspecified; N18.9 Chronic kidney disease, unspecified; D69.6 Thrombocytopenia, unspecified

== ENCOUNTER → 2017-02-09 | Outpatient (REF) | payer MEDICARE ==
[~2017-02-09] MED LIST changes: +COUM2.5T17 PO; +RANI15TA PO; -ceFAZolin 1GM INJ (J0690) As Ordered ONE
[2017-02-09 14:23] LABS: INR 1.13
== END ==
LOC: M LAB REF 13:16
PROVIDERS: ATTEND Physician Assistant
DX: Z51.81 Encounter for therapeutic drug level monitoring (principal); Z79.01 Long term (current) use of anticoagulants; Z96.642 Presence of left artificial hip joint

== ENCOUNTER → 2017-02-12 | Outpatient (REF) | payer MEDICARE ==
[2017-02-12 12:43] LABS: INR 1.23
== END ==
LOC: M LABDRWAD 12:10
PROVIDERS: ATTEND Orthopaedic Surgery
DX: Z51.81 Encounter for therapeutic drug level monitoring (principal); Z79.01 Long term (current) use of anticoagulants

== ENCOUNTER → 2017-02-16 | Outpatient (REF) | payer MEDICARE ==
[2017-02-16 13:35] LABS: INR 1.6
== END ==
LOC: M LABDRWAD 12:23
PROVIDERS: ATTEND Orthopaedic Surgery
DX: Z51.81 Encounter for therapeutic drug level monitoring (principal); Z79.01 Long term (current) use of anticoagulants

== ENCOUNTER → 2017-03-12 | Outpatient (CLI) | payer MEDICARE ==
--- NOTE | 2017-03-21 07:43 | SLEEPCENT ---
DATE OF PROCEDURE: 03/12/2017 ORDERED BY: Estela Macario. Nocturnal polysomnography was performed for the titration of pressure therapy in this patient with obstructive sleep apnea syndrome treated, apnea-hypopnea index of 25. For testing, the patient was fit with a [employer] Simplus full face mask of medium size, 5 cm of water pressure were applied to the circuit and the lights were extinguished. 8 hours and 49 minutes of data were reviewed. There were 374 minutes of sleep identified. Sleep latency was prolonged at 68 minutes. REM latency was normal at 82 minutes. Sleep architecture improved with optimal pressure therapy. There were 4 rapid eye movement (REM) periods appreciated. Overall sleep efficiency was 71.4%. Patient's EKG showed a sinus rhythm with an average heart rate of 52 beats per minute. EEG showed normal wave forms for wake and sleep. Respiratory events were found best palliated with CPAP at a pressure of +9. There was some limb activity noted which improved but does not resolve with pressure therapy. Limb movement arousal index was 8. IMPRESSION: 1. Obstructive sleep apnea syndrome (G47.33). 2. Mild periodic limb movement disorder (G47.61). Limb movement arousal index 8. RECOMMENDATION: Nightly use of pressure therapy at 9 cm of water was sufficient to address the patient's respiratory events. Interventions to reduce the frequency or arousal from limb activity may be helpful to improve the quality of sleep. cc: Dixie Muir
== END ==
LOC: M SLEEP 19:45
PROVIDERS: ATTEND Nurse Practitioner Adult Health
DX: G47.33 Obstructive sleep apnea (adult) (pediatric) (principal)

== ENCOUNTER → 2017-04-27 | Outpatient (CLI) | payer MEDICARE | LOC: M SMT 08:14 | PROVIDERS: ATTEND Urology | DX: C61 Malignant neoplasm of prostate (principal) ==

== ENCOUNTER → 2017-08-11 | Outpatient (CLI) | payer MEDICARE ==
[2017-08-11 13:55] LABS: PROSTATIC SPECIFIC AG MONITOR < 0.01 NG/ML (< 4.0)
== END ==
LOC: M SMT 09:50
DX: C61 Malignant neoplasm of prostate (principal)
CPT/HCPCS: 84153

== ENCOUNTER → 2017-08-19 | Outpatient (REF) | payer MEDICARE ==
[2017-08-19 19:33] LABS: APPEARANCE, URINE CLEAR (CLEAR); BACTERIA, URINE AUTO NEGATIVE (NEGATIVE); BILIRUBIN, URINE AUTO NEGATIVE (NEGATIVE); BLOOD, URINE BLOOD NEGATIVE (NEGATIVE); COLOR, URINE YELLOW (YELLOW); GLUCOSE, URINE (UA) AUTO NEGATIVE (NEGATIVE); KETONE, URINE AUTO NEGATIVE (NEGATIVE); LEUKOCYTE ESTERASE, URINE AUTO NEGATIVE (NEGATIVE); NITRITE, URINE AUTO NEGATIVE (NEGATIVE); PROTEIN, URINE AUTO NEGATIVE (NEGATIVE); RBC, URINE AUTO 0 /HPF (0-3); SQUAMOUS EPITHELIAL CELL UR AU 0 /HPF (0-6); UROBILINOGEN, URINE AUTO 0.2 mg/dL (0.0-2.0); WBC, URINE AUTO 0 /HPF (0-3)
== END ==
LOC: M SMT 17:06
DX: R39.9 Unspecified symptoms and signs involving the genitourinary system (principal); Z85.46 Personal history of malignant neoplasm of prostate
CPT/HCPCS: 81001

== ENCOUNTER → 2017-11-13 | Outpatient (CLI) | payer MEDICARE ==
[2017-11-13 14:02] LABS: PROSTATIC SPECIFIC AG MONITOR < 0.01 NG/ML (< 4.0)
== END ==
LOC: M SMT 08:32
DX: Z85.46 Personal history of malignant neoplasm of prostate (principal)
CPT/HCPCS: 84153

== ENCOUNTER → 2018-02-24 | Outpatient (CLI) | payer MEDICARE ==
[2018-02-24 13:44] LABS: PROSTATIC SPECIFIC AG MONITOR < 0.01 NG/ML (< 4.0)
== END ==
LOC: M SMT 09:08
DX: Z85.46 Personal history of malignant neoplasm of prostate (principal)
CPT/HCPCS: 84153

== ENCOUNTER → 2018-06-01 | Outpatient (CLI) | payer MEDICARE ==
[2018-06-01 14:48] LABS: PROSTATIC SPECIFIC AG MONITOR < 0.01 NG/ML (< 4.0)
== END ==
LOC: M SMT 08:12
DX: Z85.46 Personal history of malignant neoplasm of prostate (principal)
CPT/HCPCS: 84153

== ENCOUNTER → 2019-06-13 | Outpatient (CLI) | payer MEDICARE ==
[~2019-06-13] MED LIST changes: -OMEP20CA3 PO; +OMEP20CA4 PO
== END ==
LOC: M SMT 09:22
PROVIDERS: ATTEND Nurse Practitioner Women's Health
DX: Z85.46 Personal history of malignant neoplasm of prostate (principal)

== ENCOUNTER → 2019-09-28 | Outpatient (REF) | payer MEDICARE ==
[~2019-09-28] MED LIST changes: +OMEP1CAP73 PO; -OMEP20CA4 PO
== END ==
LOC: M LAB REF 09:46
PROVIDERS: ATTEND Dermatology
DX: B07.9 Viral wart, unspecified (principal); D22.5 Melanocytic nevi of trunk

== ENCOUNTER → 2019-12-27 | Outpatient (REF) | payer MEDICARE | LOC: M SFHCADAM 09:46 | PROVIDERS: ATTEND Nurse Practitioner Women's Health | DX: Z85.46 Personal history of malignant neoplasm of prostate (principal) ==

== ENCOUNTER → 2020-01-03 | Outpatient (REF) | payer MEDICARE ==
[2020-01-03 18:20] LABS: APPEARANCE, URINE HAZY (CLEAR); BACTERIA, URINE AUTO NEGATIVE (NEGATIVE); BILIRUBIN, URINE AUTO NEGATIVE (NEGATIVE); BLOOD, URINE BLOOD NEGATIVE (NEGATIVE); COLOR, URINE YELLOW (YELLOW); GLUCOSE, URINE (UA) AUTO 1+ mg/dL (NEGATIVE); KETONE, URINE AUTO NEGATIVE (NEGATIVE); LEUKOCYTE ESTERASE, URINE AUTO NEGATIVE (NEGATIVE); NITRITE, URINE AUTO NEGATIVE (NEGATIVE); PROTEIN, URINE AUTO NEGATIVE (NEGATIVE); RBC, URINE AUTO 0 /HPF (0-3); SPECIFIC GRAVITY URINE AUTO 1.023 (1.002-1.035); SQUAMOUS EPITHELIAL CELL UR AU 0 /HPF (0-6); UROBILINOGEN, URINE AUTO 0.2 mg/dL (0.0-2.0); WBC, URINE AUTO 0 /HPF (0-3)
== END ==
LOC: M SMT 17:15
PROVIDERS: ATTEND Nurse Practitioner Women's Health
DX: R39.89 Other symptoms and signs involving the genitourinary system (principal)
CPT/HCPCS: 81001; 87086; G0463

== ENCOUNTER → 2020-06-14 | Outpatient (CLI) | payer MEDICARE ==
[~2020-06-14] MED LIST changes: +ACET-907 PO; +NORC1TAB7 PO; +OMEP10CASR PO
== END ==
LOC: M LABSMTC 09:31
PROVIDERS: ATTEND Anesthesiology
DX: Z01.812 Encounter for preprocedural laboratory examination (principal); Z20.828 Contact with and (suspected) exposure to other viral communicable diseases

== ENCOUNTER 2020-06-19 07:20 | Day surgery (SDC) | payer MEDICARE ==
[~2020-06-19] VITALS: Ht 190.5 cm; Wt 103.4 kg
[~2020-06-19 07:20] MED LIST changes: +LIDOCAINE 1% MDV 20ML VIAL SQ PRN; +LR 1,000 ML IV ONE; +MIDAZOLAM INJ 2MG/2ML VIAL (J2250 PER 1MG) As Ordered ONE; -NORC1TAB7 PO
[2020-06-19] MEDS ORDERED: fentaNYL 250 MCG/5 ML INJECTION (J3010) As Ordered ONE (07:45)
[2020-06-19] MEDS ORDERED: ROCURONIUM BROMIDE 50 MG/5 ML VIAL As Ordered ONE ×2 (07:45→07:55)
[2020-06-19] MEDS ORDERED: LIDOCAINE 2% 100MG/5ML SDV (FOR ANES.) As Ordered ONE (07:46)
[2020-06-19] MEDS ORDERED: ONDANSETRON 4MG/2ML VIAL As Ordered ONE (07:52)
[2020-06-19] MEDS ORDERED: dexameTHASONE 4 MG/ML 1ML VIAL (J1100 PER 1MG) As Ordered ONE (07:52)
[2020-06-19] MEDS ORDERED: SUGAMMADEX SODIUM 500 MG/5 ML VIAL (BRIDION) As Ordered ONE (07:53)
[2020-06-19] MEDS ORDERED: ACETAMINOPHEN 1000MG 100ML IV BTL (OFIRMEV) (J0131 PER 10MG) As Ordered ONE (07:53)
[2020-06-19] MEDS ORDERED: METOCLOPRAMIDE INJ 10MG/2ML VIAL (J2765 PER 1) As Ordered ONE (07:53)
[2020-06-19] MEDS ORDERED: KETOROLAC 60MG 2ML VIAL As Ordered ONE (07:53)
[2020-06-19] MEDS ORDERED: BUPIVACAINE HCL 0.25% 30ML VIAL As Ordered ONE (07:57)
[2020-06-19 08:14] LABS: CALCIUM LEVEL 9.4 MG/DL (8.8-10.2); CREATININE FOR GFR 1.34 MG/DL (0.70-1.30); GLOMERULAR FILTRATION RATE 56.3 (>49); POTASSIUM SERUM 4.4 MEQ/L (3.5-5.1)
[2020-06-19] MEDS ORDERED: HumaLOG INSULIN (NovoLOG) PER UNIT SC ONE (08:15)
[2020-06-19] MEDS ORDERED: GLYCOPYRROLATE INJ 0.2 MG/ML 2 ML VIAL As Ordered ONE (08:59)
[2020-06-19] MEDS ORDERED: propofoL 200 MG/20 ML VIAL As Ordered ONE (09:28)
[2020-06-19] MEDS ORDERED: NORC1TAB7 PO (10:55)
[2020-06-19] MEDS ORDERED: LR 1,000 ML IV SCH (11:15)
[2020-06-19] MEDS ORDERED: PERCOCET 5MG/325MG TAB PO PRN (11:15)
[2020-06-19] MEDS ORDERED: ACETAMINOPHEN TAB 650MG DOSE (2X325MG) PO PRN (11:15)
[2020-06-19] MEDS ORDERED: fentaNYL 100 MCG/2 ML INJECTION (J3010) IV PRN (11:15)
[2020-06-19] MEDS ORDERED: NORCO, ANEXSIA 5/325MG TABLET (HYDROcodone/ACETAMINOPHEN) PO PRN (11:15)
[2020-06-19] MEDS ORDERED: METOCLOPRAMIDE INJ 10MG/2ML VIAL (J2765 PER 1) IV PRN (11:15)
[2020-06-19] MEDS ORDERED: ONDANSETRON 4MG/2ML VIAL IV PRN (11:15)
[2020-06-19 12:23] VITALS: BP 147/97
--- NOTE | 2020-06-19 13:11 | RO ---
DATE OF OPERATION: 06/19/2020 PREOPERATIVE DIAGNOSIS: Right inguinal hernia. POSTOPERATIVE DIAGNOSIS: Indirect right inguinal hernia. PROCEDURE PERFORMED: Robotic assisted laparoscopic right inguinal herniorrhaphy with mesh. The mesh utilized was [employer]ien ProGrip reference code [id number] and lot number [id number]. SURGEON: Arun Zendejas MD CHEMICAL LABORATORY TECHNICIAN: Yamilet Rubi, who was essential for management of robotic trocar placement, management of the robotic instruments with passage of sutures and mesh and suturing of the incisions at the conclusion of the procedure. ANESTHESIA: General. INDICATIONS FOR THE PROCEDURE: The patient is a 69-year-old man who presented with a bulge in the right inguinal area and was diagnosed with a right inguinal hernia. He is now for repair of same. OPERATIVE PROCEDURE: The patient was brought to the operating room and placed on the table in a supine position. The patient was placed under general endotracheal anesthesia. The patient's abdomen, groins and genitalia were prepped and draped in a sterile fashion. 25% Marcaine was infiltrated at each of the trocar sites as needed. Initially, a short transverse incision was made about 3 cm above the umbilicus and 2 to 3 cm to the left of the midline. A Veress needle was inserted and after positive hanging drop test, the abdomen was insufflated with carbon dioxide gas. The 8 mm robotic port was placed over a 5 mm scope and advanced to the abdominal wall without difficulty. Initial examination showed that there had been a small amount of insufflation of the underlying small-bowel mesentery with gas. There was no evidence of bleeding and no evidence of bowel injury otherwise. A second 8 mm port was placed in the right upper quadrant and a third in the left upper quadrant. The patient was tilted to approximately 15 degrees of Trendelenburg. The A[employer] XI patient cart was brought into position and the endoscope port was docked. Targeting took place in the right lower quadrant. The additional robotic arms were then docked. A fenestrated bipolar cautery and cauterizing scissors were inserted. I then moved to the control console to proceed with the operation. Initial examination showed a definite indirect inguinal hernia sac on the right. There was a thin frond of fatty tissue that extended into the hernia and was adherent into the depth of the hernia. There was some scarring in the left lower quadrant obscuring any view of the inguinal area. Initially, an incision was made in the peritoneum beginning at the medial umbilical ligament and extending laterally above the hernia defect and then curving towards the anterior superior iliac spine. The peritoneal flap was developed by a combination of blunt and sharp and cautery dissection. The dissection was carried down medially to the Joselo ligament. The hernia sac was dissected free. Because of the size of the sac, this was somewhat more difficult and required maintaining traction on the sac to peel this away from the underlying cord structures. The vas deferens was identified and dissected free and preserved. Once the flap had been adequately developed, a piece of ProGrip mesh as described previously was selected. This was trimmed slightly at the corners and inserted into the abdomen. This was placed into the preperitoneal space, centered on the indirect hernia defect. The mesh was then carefully unfolded and the adherent side of the mesh was gently pressed into the underlying soft tissues. A single 2-0 Vicryl suture was placed at the lower inner corner of the mesh tacking this to the Joselo ligament. The peritoneal flap was then closed beginning at the lateral end of the opening and suturing to the umbilical ligament. The closure was accomplished with an absorbable 2-0 V-Loc suture. A small opening in the peritoneum was closed with a single suture of 2-0 Vicryl. As the closure progressed, the patient was returned to a nearly flat position and the abdominal pressure was reduced from 15 to 8 and subsequently 6 mmHg. I would note that the adherent frond of omentum within the hernia sac had been freed. After completing the closure of the flap, the robotic instruments were removed and the robot was un-docked. The abdomen was deflated and the trocars removed. Yamilet Rubi proceeded to close the incisions with buried 4-0 Vicryl sutures and Steri-Strips. Light dressings were applied. The patient tolerated the procedure without apparent complications. He was awakened in the operating room, extubated and moved to the recovery room in stable condition. CLIFTON
== END 2020-06-19 12:30 | disposition home or self-care (01) ==
LOC: M SDC 07:20
PROVIDERS: ATTEND Surgery
DX: K40.90 Unilateral inguinal hernia, without obstruction or gangrene, not specified as recurrent (principal); I10 Essential (primary) hypertension; E78.5 Hyperlipidemia, unspecified; K21.9 Gastro-esophageal reflux disease without esophagitis; G47.33 Obstructive sleep apnea (adult) (pediatric); E11.9 Type 2 diabetes mellitus without complications; R00.1 Bradycardia, unspecified; M12.9 Arthropathy, unspecified; R06.83 Snoring; Z79.899 Other long term (current) drug therapy; Z88.2 Allergy status to sulfonamides; Z85.46 Personal history of malignant neoplasm of prostate; Z96.642 Presence of left artificial hip joint
CPT/HCPCS: 36415; 49650; 80048; 96372; C1781; J0131; J1885; J2250; J2405; J2765; J3010; S2900

== ENCOUNTER → 2020-06-27 | Outpatient (REF) | payer MEDICARE ==
[~2020-06-27] MED LIST changes: -LIDOCAINE 1% MDV 20ML VIAL SQ PRN; -LR 1,000 ML IV ONE; -MIDAZOLAM INJ 2MG/2ML VIAL (J2250 PER 1MG) As Ordered ONE; +NORC1TAB7 PO
== END ==
LOC: M LABDRWAD 16:32 → M SMT 16:32
PROVIDERS: ATTEND Nurse Practitioner Women's Health
DX: Z85.46 Personal history of malignant neoplasm of prostate (principal)

== ENCOUNTER → 2020-07-04 | Outpatient (REF) | payer MEDICARE ==
[2020-07-04 14:13] LABS: APPEARANCE, URINE CLEAR (CLEAR); BACTERIA, URINE AUTO NEGATIVE (NEGATIVE); BILIRUBIN, URINE AUTO NEGATIVE (NEGATIVE); BLOOD, URINE BLOOD NEGATIVE (NEGATIVE); COLOR, URINE YELLOW (YELLOW); GLUCOSE, URINE (UA) AUTO NEGATIVE (NEGATIVE); KETONE, URINE AUTO NEGATIVE (NEGATIVE); LEUKOCYTE ESTERASE, URINE AUTO NEGATIVE (NEGATIVE); NITRITE, URINE AUTO NEGATIVE (NEGATIVE); PROTEIN, URINE AUTO NEGATIVE (NEGATIVE); RBC, URINE AUTO 0 /HPF (0-3); SPECIFIC GRAVITY URINE AUTO 1.018 (1.002-1.035); SQUAMOUS EPITHELIAL CELL UR AU 0 /HPF (0-6); UROBILINOGEN, URINE AUTO 0.2 mg/dL (0.0-2.0); WBC, URINE AUTO 0 /HPF (0-3)
== END ==
LOC: M SMT 13:26
PROVIDERS: ATTEND Nurse Practitioner Women's Health
DX: R39.89 Other symptoms and signs involving the genitourinary system (principal)
CPT/HCPCS: 81001; 87086; G0463

== ENCOUNTER → 2020-08-22 | Outpatient (CLI) | payer MEDICARE ==
[~2020-08-22] MED LIST changes: +ACET-683 PO; -LISI-538 PO; +LISI20TA33 PO
== END ==
LOC: M LABSMTC 09:44
PROVIDERS: ATTEND Anesthesiology
DX: Z01.812 Encounter for preprocedural laboratory examination (principal); Z20.822 Contact with and (suspected) exposure to COVID-19

== ENCOUNTER 2020-08-27 06:39 | Day surgery (SDC) | payer MEDICARE ==
[~2020-08-27] VITALS: Ht 190.5 cm; Wt 104.7 kg
[~2020-08-27 06:39] MED LIST changes: +LISI-538 PO; -LISI20TA33 PO
--- OUTSIDE RECORDS SUMMARY | 2020-08-27 06:44 | CCD ---
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 377038530 Problem Prostate cancer C61 Active 987449280 ALLERGIES Allergen (clinical drug ingredient) Drug/Non Drug Allergy do cumented on EMR Reaction Allergy Type Onset Date Status sulfamethoxazole / trimethoprim Bactrim([facility] [place]NOTE 2] Code:[address]-66) Hives Drug Allergy Active Sulfa (for allergy use only) Hives Drug Allergy Active ENCOUNTERS from 1950 to 2020-07-05 Encounter Location Date Provider Diagnosis [facility] Urology [address] [place] [address] Jun Leanne Fernandez IMMUNIZATIONS No Information SOCIAL HISTORY Tobacco Use: Social History Observation Description Date Details (start date - stop date) Never Smoker Sex Assigned At : Social History Observation Description Sex Assigned At Unknown Sexual Hx: Question Answer Notes Had sex in the last 12 months (vaginal, oral, or anal)? Yes Have you ever had an STD? No with Women only Use protection? No Alcohol Screening: Question Answer Notes Did you have a drink containing alcohol in the past year? Ye s Points 2 Interpretation Negative How many drinks did you have on a typica l day when you were drinking in the past year? 1 or 2 (0 points) How often did you have a drink containing alcohol in t he past year? Two to four times a month (2 points) Tobacco Use: Question Answer Notes Are you a: never smoker REASON FOR REFERRAL No Information VITAL SIGNS No information MEDICATIONS Medication SIG (Take, Route, Frequency, Duration) Notes Start Da te End Date Status Janumet 50-1000 MG 1 tablet with meals Orally Twice a day Active GlipiZIDE ER 2.5 MG 1 tablet Orally Once a day Not-Taking Omeprazole Magnesium 10 MG 1 packet 30 minutes before morning meal Orally Once a day for 30 day(s) Active Potassium 1 tab Oral Active Viagra 100 MG 1/2 tablet thursday, thursday and thursday Orally Once a day for 30 day(s) Feb, Not-Taking Tylenol Arthritis Pain 650 MG 2 tablets as needed Orally every 8 hrs Active Pravastatin 20 20 mg oral Acti ve Lisinopril 20 20 mg oral Activ e Ranitidine HCl 150 MG 1 capsule at bedtime Orally twice a day Not-Taking PROCEDURES No Information RESULTS No Results REASON FOR VISIT urine MEDICAL (GENERAL) HISTORY Type Description Date Medical History renal colic Medical History dm2 Medical History hyperlipidemia Medical History gerd Medical History htn Medical History Prostatectomy Medical History PT HAS INGUINAL HENRNIA ON RIGHT Surgical History vasectomy 36 years ago Surgical History left uretoscopy and stone removal 2015 Surgical History holep and bladder stone removal 2015 Surgical History left hip shot 02/2016 Surgical History Prostatectomy 05/13/16 Surgical History hernia repair on Right side 05/2020 Hospitalization History SURGICALLY RELATED 01/19/2017 Goals Section No Information Health Concerns No Information MEDICAL EQUIPMENT No Information MENTAL STATUS No Information FUNCTIONAL STATUS No Information ASSESSMENTS No Information PLAN OF TREATMENT Next Appt Details Provider Name:Alonso Barber, 2020-09 07:30:00 AM, [address] [facility], [address], [place], [address], Provider Name:Leanne Fernandez, 2020-12-25 09:30:00 AM, [address], [place], [address], Insurance Providers Payer Name Payer Address Payer Phone Insured Name Patient Relati onship to Insured Coverage Start Date Coverage End Date MEDICARE COMPLETE [employer] [address] [address] [facility] [id number] ANKUR MYERS self
--- OUTSIDE RECORDS SUMMARY | 2020-08-27 06:44 | CCD ---
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 073319668 Problem Prostate cancer C61 Active 404617695 ALLERGIES Allergen (clinical drug ingredient) Drug/Non Drug Allergy do cumented on EMR Reaction Allergy Type Onset Date Status sulfamethoxazole / trimethoprim Bactrim([facility] Code:[address]-46) Hives Drug Allergy Active Sulfa (for allergy use only) Hives Drug Allergy Active ENCOUNTERS from 1950 to 2020-07-07 Encounter Location Date Provider Diagnosis [facility] U[facility] [address] [place] [address] [place] [address] Jun Leanne Fernandez Bladder pain R39.89 and History of prost ate cancer Z85.46 IMMUNIZATIONS No Information SOCIAL HISTORY Tobacco Use: [...] REASON FOR REFERRAL No Information VITAL SIGNS Weight 222 lbs Jun, Height 6'3 in Jun, BMI 30.11 kg/m2 Jun, Heart Rate 57 /min Jun, Respiratory Rate 18 /min Jun, Temperature 97.3 degrees Fahrenheit Jun, Oximetry 98% Jun, Blood pressure systolic 132 mm Hg Jun, Blood pressure diastolic 80 mm Hg Jun, MEDICATIONS Medication SIG (Take, Route, Frequency, Duration) [...] a day Not-Taking PROCEDURES No Information RESULTS Component Value Reference Range UA URINALYSIS Reviewed date:07/04/2020 14:27:18 Interpretation: Performing Lab:[facility] LABORATORY [address] [facility] [address] , ,[id number] URINE CULTURE Reviewed date:07/05/2020 09:34:58 Interpretation: Performing Lab:[facility] [address] [facility] [address] , ,[id number] REASON FOR VISIT 6 MONTH F/U W PSA MEDICAL (GENERAL) HISTORY Type Description Date Medical History renal colic Medical History dm2 Medical History hyperlipidemia Medical History gerd Medical History htn Medical History Prostatectomy Medical History PT HAS INGUINAL HENRNIA ON RIGHT Surgical History vasectomy 36 years ago Surgical History left uretoscopy and stone removal 2016 Surgical History holep and bladder stone removal 2016 Surgical History left hip shot 02/2016 Surgical History Prostatectomy 05/13/16 Surgical History hernia repair on Right side 05/2020 Hospitalization History SURGICALLY RELATED 01/19/2017 Goals Section No Information Health Concerns No Information MEDICAL EQUIPMENT No Information MENTAL STATUS No Information FUNCTIONAL STATUS No Information ASSESSMENTS Encounter Date Diagnosis Assessment Notes Treatment Notes Treatm ent Clinical Notes Jun, Bladder pain (ICD-10 - R39.89) Jun, History of prostate cancer (ICD-10 - Z85.46) PLAN OF TREATMENT Future Test Test Name Order Date PSA MONITOR (HX PROSTATE CA/ABNORMAL PSA) [id number] Next Appt Details 6 Months Reason:PSA Provider Name:Alonso Barber, 2020-09 07:30:00 AM, [address], [address], [place], [address], Provider Name:Leanne Fernandez, 2020-12-25 4 09:30:00 AM, [address], [place], [address], Follow Up:6 MonthsPSA Insurance Providers Payer Name Payer Address Payer Phone Insured Name Patient Relati onship to Insured Coverage Start Date Coverage End Date MEDICARE COMPLETE [employer] [address] [address] [facility] [phone] ANKUR MYERS self
--- OUTSIDE RECORDS SUMMARY | 2020-08-27 06:45 | CCD | Continuity of Care Document ---
Author Organization Unknown Address Unknown Phone Unavailable Care Team Providers Care Locomotive Crane Operator Helper Name Role Phone Stefano Gonzalez MD AUTM [phone] Prakash Wiggins MD AUTM [phone] Ruy Zambrano MD AUTM Unavailable [facility] AUTM [facility] AUTM [phone] Chandu Billings MD AUTM [phone] Arun Zendejas MD AUTM [phone] Prakash Villegas DO AUTM [phone] Problems Active Problems Provider Date Male erectile disorder Onset: 04/28/2011 Type 2 diabetes mellitus Onset: 04/28/20 11 Hypertensive disorder Onset: 04/28/2011 Depressive disorder Onset: 01/15/2010 Gastroesophageal reflux disease Onset: 0 01/03/2009 Dyslipidemia Onset: 01/03/2009 Social History Type Date Description Comments Sex Unknown Tobacco Use Start: Unknown Never Smoked Cigarettes ETOH Use Occasionally consumes beer incre ase since dx with kidney stone Tobacco Use Start: Unknown Patient has never smoked Exercise Type/Frequency Exercises sporadically Seat Belt/Car Seat always uses seat belt Allergies, Adverse Reactions, Alerts Active Allergies Reaction Severity Comments Date Sulfa hives 01/30/2015 Medications Active Medications SIG Qnty Indications Ordering Provide r Date Aspirin [address] 1 by mouth every day 90tabs Stefano Gonzalez M.D. 04/11/[address] 1 by mouth every other day 90caps Stefano Gonzalez M.D. 05/18/2019 Tylenol Extra Strength 500mg Table ts 1 po bid Stefano Gonzalez M.D. 01/30/2015 Pravastatin Sodium 20mg Tablets 1 by mouth every day 90emma Gonzalez M.D. 01/30/2015 Janumet XR 50-1000mg Tablets ER 24 HR take one tablet by mouth twice a day 180emma Gonzalez M.D. 01/30/2015 Lisinopril 20mg Tablets 1 by mouth every day 90emma Gonzalez M.D. 01/30/2015 Potassium Citrate ER 15Meq (1620 mg) Tablets ER 1 by mouth twice a day 180Alex Dang Administration Of Flu Vaccine Inj ection Unknown Medications Administered in Office Medication SIG Qnty Indications Ordering Provider Date Administration Of Flu Vaccine Inj ection Stefano Gonzalez M.D. 05/18/2019 Administration Of Flu Vaccine Inj ection Stefano Gonzalez M.D. 04/23/2018 Immunizations CPT Code Status Date Vaccine Lot # [id number] Given 05/18/2019 Influenza Vaccin e Quadrivalent Preser/Antibiotic Free Im Use [id number] Given 04/23/2018 Influenza Virus Vaccine, Quadrivalent ([id number]), Derived From Cell [id number] Vital Signs Date Vital Result Comment 03/27/2020 12:37pm BP Systolic 120 mmHg BP Diastolic 58 mmHg Heart Rate 64 /min Height 74 inches 6'2" Weight 221.38 lb O2 % BldC Oximetry 98 % RM Air BMI (Body Mass Index) 28.4 kg/m2 05/18/2019 11:05am BP Systolic 112 mmHg BP Diastolic 72 mmHg Heart Rate 70 /min Height 74 inches 6'2" Weight 221.00 lb BMI (Body Mass Index) 28.4 kg/m2 Results Test Acquired Date Facility Test Result H/L Range Note Laboratory test finding 06/19/2020 [place] [address] [place], [place] [id number] [phone] Bedside Glucose 200 mg/dL High 80-115 Laboratory test finding 06/19/[address] [id number] [phone] Bedside Glucose 205 mg/dL High 80-115 Basic Metabolic Profile 06/19/[address] [address] [phone] Glucose, Fasting 197 mg/dL High 70-100 Blood Urea Nitrogen 16 mg/dL Normal 7-18 Creatinine For GFR 1.34 mg/dL High 0.70-1.30 Glomerular Filtration Rate 56.3 Normal >49 1 Sodium Level 139 mEq/L Normal 136-145 Potassium Serum 4.4 mEq/L Normal 3.5-5.1 Chloride Level 106 mEq/L Normal 98-107 Carbon Dioxide Level 27 mEq/L Normal 21-32 Anion Gap 6 mEq/L Low 8-16 Calcium Level 9.4 mg/dL Normal 8.8-10.2 Complete Blood Count 03/26/2020 [facility], pc Court Interpreter: Dr Wayne Abernathy [place] [id number] [phone] WBC 6.1 x10*3/UL 4.1 - 10.9 RBC 4.60 x10*6/UL 4.20 - 6.30 Hemoglobin 13.9 g/dL 12.0 - 18.0 Hematocrit 39.0 % 37.0 - 51.0 MCV 84.7 fL 80.0 - 97.0 MCH 30.3 pg 26.0 - 32.0 MCHC 35.8 g/dL 31.0 - 38.0 RDW 12.8 % 11.6 - 13.7 PLT 106 x10*3/UL Low 140 - 440 2 MPV 10.1 FL 7.8 - 11.0 Lymph % 32.5 % 10.0 - 58.5 Mid % 9.3 % 1.7 - 9.3 Neut % 58.2 % 37.0 - 92.0 Lymph # 2.0 x10*3/UL 0.6 - 4.1 Mid # 0.6 x10*3/UL 0.1 - 0.6 Neut # 3.5 x10*3/UL 2.0 - 7.8 A1c 03/26/2020 [facility] , [address] Court Interpreter: Dr Wayne Abernathy [place] [id number] [phone] Hba1c 6.3 g/dL High 4.8 - 5.6 3 Est Avg Glucose 134 mg/dL High 60 - 110 Comprehensive Chem Profile 03/26/2020 [facility] Court Interpreter: Dr [place] [id number] [phone] Glucose 130 mg/dL High 74 - 99 4 BUN 21 mg/dL High 7 - 18 Creatinine 1.2 mg/dL 0.6 - 1.3 Sodium 143 mEq/L 136 - 145 Potassium 4.5 mEq/L 3.5 - 5.1 Chloride 106 mEq/L 98 - 107 Carbon Dioxide 27 mEq/L 21 - 32 Calcium 8.9 mg/dL 8.5 - 10.1 Alk. Phosphatase 68 mg/dL 46 - 116 Total Bilirubin 0.6 mg/dL 0.2 - 1.0 Ast (Sgot) 27 U/L 15 - 37 Alt (SGPT) 42 U/L 12 - 78 Albumin 4.2 g/dL 3.4 - 5.0 Total Protein 7.2 g/dL 6.4 - 8.2 A/G Ratio 1.40 CALC 1.00 - 1.90 GFR >= 60 mL/min >60 GFR >= 60 mL/min >60 5 Lipid Profile 03/26/2020 [facility] , Court Interpreter: [place] [address] [phone] Cholesterol 149 mg/dL 131 - 200 Triglycerides 167 mg/dL High 30 - 150 HDL Cholesterol 36 mg/dL 35 - 60 LDL (Calculated) 80 CALC 50 - 159 Laboratory test finding 03/26/2020 [facility], Court Interpreter: [place] [address] [phone] Thyroid Stimulating Hormone 2.72 uIU/mL 0.3 6 - 3.74 Microalbumin/Creatinine Urine 03/26/2020 [facility], Court Interpreter: Dr Wayne Sonilogg [place], [place] [id number] [phone] Microalbumin Urine 33.9 mg/L High 1.3 - 20.0 Urine Creatinine 158.3 mg/dL High 30.0 - 125.0 Microalb/Creat Ratio 21.4 ug/mg 0.0 - 30.0 1 Units are mL/min/1.73 m2 Chronic Kidney Disease Staging per F: Stage I & II GFR >=60 Normal to Mildly Decreased Stage III GFR 30-59 Moderately Decreased Stage IV GFR 15-29 Severely Decreased Stage V GFR <15 Very Little GFR Left ESRD GFR <15 on STEAM STATION SUPERVISOR 2 NOTE: RESULT VERIFIED. 3 Lab Result Notes: Pre-Diabetes 5.7 - 6.4 % Diabetes = or > 6.5% 4 100-125 mg/dL PRE-DIABET ES/FASTING >126 mg/dL DIABETES/FASTING 5 CHRONIC KIDNEY DISEASE STAGI NG PER NKF STAGE I & II GFR >= 60 NORMAL TO MILDLY DECREASED STAGE III GFR 30-59 MODERATELY DECREASED STAGE IV GFR 15-29 SEVERELY DECREASED STAGE V GFR <15 VERY LITTLE GFR LEFT ESRD GFR <15 ON STEAM STATION SUPERVISOR Procedures Date Code Description Status 04/24/2020 100949016 Diabetic Retinal Eye Exam Comple mackenzie 09/29/2019 [id number] Diabetic Retinal Eye Exam Comple mackenzie 12/28/2018 [id number] Diabetic Retinal Eye Exam Comple mackenzie 04/22/2018 [id number] Diabetic Retinal Eye Exam Comple mackenzie 10/24/2016 [id number] Diabetic Retinal Eye Exam Comple mackenzie 02/18/2016 [id number] Diabetic Retinal Eye Exam Comple mackenzie 01/31/2015 [id number] Diabetic Retinal Eye Exam Comple mackenzie 02/15/2010 [id number] Colonoscopy Completed Medical Devices Description No Information Available Encounters Description No Information Available Assessments Date Code Description Provider 04/16/2020 N18.3 Chronic kidney disease, stage 3 (moderate) Stefano Gonzalez M.D. 04/16/2020 K21.9 Gastro-esophageal reflux disease without esophagitis Stefano Gonzalez M.D. 04/16/2020 E78.5 Hyperlipidemia, unspecified Anya Gonzalez M.D. 04/16/2020 G47.33 Obstructive sleep apnea (adult) (pediatric) Stefano Gonzalez M.D. 03/27/2020 I12.9 Hypertensive chronic kidney dise ase with stage 1 through sta Stefano Gonzalez M.D. 03/27/2020 N18.3 Chronic kidney disease, stage 3 (moderate) Stefano Gonzalez M.D. 03/27/2020 D69.6 Thrombocytopenia, unspecified Jose Gonzalez M.D. 03/27/2020 M25.552 Pain in left hip Stefano Gonzalez M.D. 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 03/27/2020 K21.9 Gastro-esophageal reflux disease without esophagitis Stefano Gonzalez M.D. 03/27/2020 E78.5 Hyperlipidemia, unspecified Anya Gonzalez M.D. 03/27/2020 G47.33 Obstructive sleep apnea (adult) (pediatric) Stefano Gonzalez M.D. 03/27/2020 I44.7 Left bundle-branch block, unspec ified Stefano Gonzalez M.D. 03/27/2020 H91.13 Presbycusis, bilateral Stefano Gonzalez M.D. 03/27/2020 Z85.46 Personal history of malignant ne oplasm of prostate Stefano Gonzalez M.D. 03/27/2020 I49.5 Sick sinus syndrome Stefano martins M.D. 03/26/2020 I12.9 Hypertensive chronic kidney disease with stage 1 through stage 4 chronic kidney disease, or unspecified chronic kidney disease Stefano Gonzalez M.D. 03/26/2020 I12.9 Hypertensive chronic kidney dise ase with stage 1 through sta Lab Schedule 03/26/2020 N18.3 Chronic kidney disease, stage 3 (moderate) Stefano Gonzalez M.D. 03/26/2020 N18.3 Chronic kidney disease, stage 3 (moderate) Lab Schedule 03/26/2020 D69.6 Thrombocytopenia, unspecified Jose Gonzalez M.D. 03/26/2020 D69.6 Thrombocytopenia, unspecified La b Schedule 03/26/2020 E11.40 Type 2 diabetes mignon itus with diabetic neuropathy, unspecified Stefano Gonzalez M.D. 03/26/2020 E11.40 Type 2 diabetes mellitus with di abetic neuropathy, unspecifi Lab Schedule 03/26/2020 E78.5 Hyperlipidemia, unspecified Anya Gonzalez M.D. 03/26/2020 E78.5 Hyperlipidemia, unspecified Lab Schedule Plan of Treatment Future Appointment(s):* 09/27/2020 9:20 am - Lab Schedule at [facility] * 09/28/2020 9:30 am - Stefano Gonzalez M.D. at [facility] 03/27/2020 - Stefano Gonzalez M.D.* I12.9 Hypertensive chronic kidney disease w stg 1-4/unsp chr kdny * N18.3 Chronic kidney disease, stage 3 (moderate) * D69.6 Thrombocytopenia, unspecified * M25.552 Pain in left hip * E11.40 Type 2 diabetes mellitus with diabetic neuropathy, unsp * K21.9 Gastro-esophageal reflux disease without esophagitis * E78.5 Hyperlipidemia, unspecified * G47.33 Obstructive sleep apnea (adult) (pediatric) * I44.7 Left bundle-branch block, unspecified * H91.13 Presbycusis, bilateral * Z85.46 Personal history of malignant neoplasm of prostate * I49.5 Sick sinus syndrome * * Comments:* 1. Type II diabetes with peripheral neuropathy - good control2. HTN3. Dysthymia4. ED5. GERD - does require PPI QOD - good control.6. History of prostate cancer, follows with [facility] Urology - GINGER PSA undetectable.7. MARSHA - on C-PAP - 100% use at home except at camp or travel.8. Known presence of LBBB9. OA - follows with [facility] left hip artificial - to talk to Dr Cordova today about lateral pain.10. Presbycusis - has hearing aides - gets via mail away (not in today).Saw [facility] Dermatology for full evaluation - will f/u.Right inguinal hernia - saw Dr Zendejas - will f/u and expect surgery since increased issues. Functional Status Description No Information Available Mental Status Description No Information Available Referrals Refer to Dr Reason for Referral Status Appt Date Harley Oliver MD CONSULT FOR SCREENING COLONOSCOPY Jesse matthews Notified 05/31/[address] [place], [place] [address] [phone]
--- OUTSIDE RECORDS SUMMARY | 2020-08-27 06:45 | CCD | Continuity of Care Document ---
Author Author Arun OLIVER M.D Organization Unknown Address [address] [place] [address] Phone [phone] Care Team Providers Care Manager Community Development Name Role Phone Stefano Gonzalez M.D. AUTM [phone] Problems Active Problems Provider Date Screening for malignant neoplasm of colon Harley frais M.D. Onset: 05/31/2020 Social History Type Date Description Comments Sex Unknown ETOH Use Occasionally Tobacco Use Start: Unknown Patient has never smoked Allergies, Adverse Reactions, Alerts Description No Known Drug Allergies Medications Active Medications SIG Qnty Indications Ordering Provide r Date Suprep Bowel Prep Kit 17.5-3.13-1.6GM/177ML Solution use as directed 354ml Harley Oliver M.D. 05/31/2020 Lisinopril 20mg Tablets Stefano Gonzalez M.D. Pravastatin Sodium 20mg Tablets Stefano Gonzalez M.D. Janumet XR 50-1000mg Tablets ER 24HR Stefano Gonzalez M.D. Potassium Citrate ER 15Meq (1620 mg) Tablets ER Stefano Gonzalez M.D. 0 Omeprazole 20mg Capsules Stefano Stock M.D. Tylenol 325mg Capsules Unknown Immunizations Description No Information Available Vital Signs Date Vital Result Comment 05/31/2020 11:18am Height 75 inches 6'3" Weight 228.00 lb BP Systolic 130 mmHg BP Diastolic 89 mmHg Heart Rate 62 /min BMI (Body Mass Index) 28.5 kg/m2 Weight 103.421 kg Body Temperature 97.3 F Results Description No Information Available Procedures Description No Information Available Medical Devices Description No Information Available Encounters Type Date Location Provider Dx Diagnosis Office Visit 05/31/2020 10:30a Main Office Harley Oliver M.D. Z 12.11 Encounter for screening for malignant neoplasm of colon Assessments Date Code Description Provider 05/31/2020 Z12.11 Screening for malignant neoplasm of colon Harley Oliver M.D. Plan of Treatment 05/31/2020 - Harley Oliver M.D.* Z12.11 Screening for malignant neoplasm of colon* Comments:* 69 yo wm who presents for a screening colonoscopy. Last scope was in 2009. No c/o abdominal pain, weight loss, change in bowel habits, or rectal bleeding. No family h/o colon cancer. No h/o chest pain, or sob. Plan:1.Schedule patient for a colonoscopy.2.Informed consent given to the patient.3.Pt. advised to stop aspirin,plavix, and anticoagulants at least 3 to 7 days prior to the procedure. Functional Status Description No Information Available Mental Status Description No Information Available Referrals Description No Information Available
--- OUTSIDE RECORDS SUMMARY | 2020-08-27 06:45 | CCD | Continuity of Care Document ---
Author Author Arun RUBI [facility] Organization Unknown Address [address], [address] [place] [address] Phone [phone] Care Team Providers Care Jv Baseball Coach Name Role Phone Stefano Gonzalez M.D. AUTM [phone] Problems Active Problems Provider Date Obstructive sleep apnea syndrome SELMA Jansen Onset: 07/05/2020 Social History Type Date Description Comments Sex Unknown ETOH Use Occasionally consumes alcohol Recreational Drug Use Denies Drug Use Tobacco Use Start: Unknown Denies Smoking Smoking Status Reviewed: 07/05/20 Denies Smoking Allergies, Adverse Reactions, Alerts Active Allergies Reaction Severity Comments Date Sulfa 01/29/2010 Bactrim 01/29/2010 Medications Active Medications SIG Qnty Indications Ordering Provide r Date Potassium Citrate ER 15Meq (1620 mg) Tablets ER Twice Daily Unknown Janumet 50-1000mg Tablets Twi ce Daily Unknown Omeprazole 20mg Capsules DR 1 by mouth every day Unknown Tylenol 8 Hour Arthritis Pain 650mg Tablets ER Twice Daily Unknown Pravastatin Sodium 20mg Tablets 1 by mouth every day Unknown Lisinopril 20mg Tablets 1 by mouth every day Unknown CPAP Device +[facility] Unknown Immunizations CPT Code Status Date Vaccine Lot # [id number] Given 06/09/2014 Influenza Virus Split 3 Yrs And Above For Intramuscular Use 13352 Given 07/06/2012 Pneumococcal PPSV23 [id number] Refused 05/14/2017 Influenza Virus Split 3 Yrs And Above For Intramuscular Use Vital Signs Date Vital Result Comment 07/10/2020 9:22am BP Systolic 136 mmHg BP Diastolic 80 mmHg Height 75 inches 6'3" Weight 231.50 lb BMI (Body Mass Index) 28.9 kg/m2 [place] Body Weight 196 lb Weight 105.008 kg BSA (Body Surface Area) 2.34 m2 07/05/2020 8:14am BP Systolic 128 mmHg BP Diastolic 82 mmHg Heart Rate 66 /min O2 % BldC Oximetry 98 % Body Temperature 97.6 F Height 75 inches 6'3" Weight 233.00 lb BMI (Body Mass Index) 29.1 kg/m2 [place] Body Weight 196 lb Weight 105.689 kg BSA (Body Surface Area) 2.34 m2 Results Test Acquired Date Facility Test Result H/L Range Note Laboratory test finding 06/19/2020 [facility] Main Lab [address] [place], [place] [id number] [phone] Bedside Glucose 200 mg/dL High 80-115 Laboratory test finding 06/19/2020 [facility] Main Lab [address] [place], [place] [address] [phone] Bedside Glucose 205 mg/dL High 80-115 Basic Metabolic Profile 06/19/2020 [facility] Main Lab [address] [place], [place] [address] [phone] Glucose, Fasting 197 mg/dL High 70-100 Blood [...] 8-16 Calcium Level 9.4 mg/dL Normal 8.8-10.2 1 Units are mL/min/1.73 m2 Chronic Kidney Disease Staging per NKF: Stage I & II GFR >=60 Normal to Mildly Decreased Stage III GFR 30-59 Moderately Decreased Stage IV GFR 15-29 Severely Decreased Stage V GFR <15 Very Little GFR Left ESRD GFR <15 on TOLL LINEMAN Procedures Date Code Description Status 06/19/2020 52753 Lap Inguinal Hernia Repair Compl eted Medical Devices Description No Information Available Encounters Type Date Location Provider Dx Diagnosis Office Visit 07/05/2020 8:30a [facility] Aurelia To wne, ANP G47.33 Obstructive sleep apnea (adult) (pediatr ic) Office Visit 06/26/2020 8:30a [facility] Ru hawthorne NP K40.90 Unil inguinal hernia, w/o obst or gangr, not spcf as recur Z48.89 Encounter for other specifie d surgical aftercare Office Visit 04/18/2020 11:15a [facility] Arun lopez M.D. K40.90 Unil inguinal hernia, w/o obst or gangr, not spcf as recur Assessments Date Code Description Provider 07/05/2020 G47.33 Obstructive sleep apnea (adult) (pediatric) SELMA Jansen 06/26/2020 K40.90 Unilateral inguinal hernia, without obstruction or gangrene, not specified as recurrent Ru Rubi NP 06/26/2020 Z48.89 Encounter for other specified robles rgical aftercare Ru Rubi NP 06/19/2020 K40.90 Unilateral inguinal hernia, without obstruction or gangrene, not specified as recurrent Arun Zendejas M.D. 04/18/2020 K40.90 Unilateral inguinal hernia, without obstruction or gangrene, not specified as recurrent Arun Zendejas M.D. Plan of Treatment Future Appointment(s):* 07/09/2021 9:00 am - SELMA Jansen at [facility] 07/05/2020 - SELMA Jansen* G47.33 Obstructive sleep apnea (adult) (pediatric) * * Follow up:* Follow up in 12 months with compliance report for MARSHA-30 Functional Status Description No Information Available Mental Status Description No Information Available Referrals Description No Information Available
--- OUTSIDE RECORDS SUMMARY | 2020-08-27 06:45 | CCD | Continuity of Care Document ---
Author Author Arun RUBI [facility] Organization Unknown Address [address], [address] [place] [address] Phone [phone] Care Team Providers Care Construction Lineman Name Role Phone Stefano Gonzalez M.D. AUTM [phone] Problems Description No Information Available Social History Type Date Description Comments Sex Unknown ETOH Use Occasionally consumes alcohol Recreational Drug Use Denies Drug Use Tobacco Use Start: Unknown Denies Smoking Allergies, Adverse Reactions, Alerts Active [...] Tablets 1 by mouth every day Unknown Immunizations Description No Information Available Vital Signs Date Vital Result Comment 06/26/2020 8:35am BP Systolic 130 mmHg BP Diastolic 72 mmHg Height 75 inches 6'3" Weight 229.00 lb BMI (Body Mass Index) 28.6 kg/m2 [place] Body Weight 196 lb Weight 103.874 kg BSA (Body Surface Area) 2.32 m2 04/18/2020 11:26am BP Systolic 130 mmHg BP Diastolic 70 mmHg Height 75 inches 6'3" Weight 221.00 lb BMI (Body Mass Index) 27.6 kg/m2 [place] Body Weight 196 lb Weight 100.246 kg BSA (Body Surface Area) 2.29 m2 Results Test Acquired Date Facility Test Result H/L Range Note Laboratory test finding 06/19/2020 [facility] Main Lab [address] [place] [address] [phone] Bedside Glucose 200 mg/dL High 80-115 Laboratory test finding 06/19/2020 [facility] Main Lab [address] [place], [place] [address] [phone] Bedside Glucose 205 mg/dL High 80-115 Basic Metabolic Profile 06/19/2020 [facility] Main Lab [address] [place], [place] [id number] [phone] Glucose, Fasting 197 mg/dL High 70-100 Blood [...] Little GFR Left ESRD GFR <15 on DIESEL ENGINE ERECTOR Procedures Description No Information Available Medical Devices Description No Information Available Encounters Type Date Location Provider Dx Diagnosis Office Visit 04/18/2020 11:15a [facility] Arun lopez M.D. K40.90 Unil inguinal hernia, w/o obst or gangr, not spcf as recur Assessments Date Code Description Provider 04/18/2020 K40.90 Unilateral inguinal hernia, without obstruction or gangrene, not specified as recurrent Arun Zendejas M.D. Plan of Treatment Future Appointment(s):* 07/05/2020 8:30 am - Aurelia Garvin ANP at [facility] Functional Status Description No Information Available Mental Status Description No Information Available Referrals Description No Information Available
--- OUTSIDE RECORDS SUMMARY | 2020-08-27 06:45 | CCD ---
Author Author [facility] Organization [facility] Address Unknown Phone Unavailable Care Team Providers [facility] [employer] Leader Name Role Phone Oleg Oliver MD Unavailable Unavailable Oleg Oliver MD Unavailable Unavailable Oleg Oliver MD Unavailable Unavailable Oleg Oliver MD Unavailable Unavailable Oleg Oliver MD Unavailable Unavailable Oleg Oliver MD Unavailable Unavailable Oleg Oliver MD Unavailable Unavailable Oleg Oliver MD Unavailable Unavailable Oleg Oliver MD Unavailable Unavailable Oleg Oliver MD Unavailable Unavailable Oleg Oliver MD Unavailable Unavailable Oleg Oliver MD Unavailable Unavailable Oleg Oliver MD Unavailable Unavailable Oleg Oliver MD Unavailable Unavailable Oleg Oliver MD Unavailable Unavailable Oleg Oliver MD Unavailable Unavailable Oleg Oliver MD Unavailable Unavailable Oleg Oliver MD Unavailable Unavailable Oleg Oliver MD Unavailable Unavailable Oleg Oliver MD Unavailable Unavailable Oleg Oliver MD Unavailable Unavailable Oleg Oliver MD Unavailable Unavailable Oleg Oliver MD Unavailable Unavailable Oleg Oliver MD Unavailable Unavailable Oleg Oliver MD Unavailable Unavailable Oleg Oliver MD Unavailable Unavailable Oleg Oliver MD Unavailable Unavailable Benito, S Harley MD Unavailable Unavailable Benito, S Harley MD Unavailable Unavailable Benito, S Harley MD Unavailable Unavailable Benito, S Harley MD Unavailable Unavailable Benito, S Harley MD Unavailable Unavailable Benito, S Harley MD Unavailable Unavailable Benito, S Harley MD Unavailable Unavailable Benito, S Harley MD Unavailable Unavailable Benito, S Harley MD Unavailable Unavailable Benito, S Harley MD Unavailable Unavailable Benito, S Harley MD Unavailable Unavailable Benito, S Harley MD Unavailable Unavailable Benito, S Harley MD Unavailable Unavailable Benito, S Harley MD Unavailable Unavailable Benito, S Harley MD Unavailable Unavailable Benito, S Harley MD Unavailable Unavailable Benito, S Harley MD Unavailable Unavailable Benito, S Harley MD Unavailable Unavailable Benito, S Harley MD Unavailable Unavailable Benito, S Harley MD Unavailable Unavailable Benito, S Harley MD Unavailable Unavailable Titus Guerrero, Michi Randall MD, FACS Unavailable Unavailable Titus Guerrero, Michi Randall MD, FACS Unavailable Unavailable Titus Guerrero, Michi Randall MD, FACS Unavailable Unavailable Titus Guerrero, Michi Randall MD, FACS Unavailable Unavailable Titus Guerrero, Michi Randall MD, FACS Unavailable Unavailable Titus Guerrero, Michi Randall MD, FACS Unavailable Unavailable Titus Guerrero, Michi Randall MD, FACS Unavailable Unavailable Titus Guerrero, Michi Randall MD, FACS Unavailable Unavailable Titus Guerrero, Michi Randall MD, FACS Unavailable Unavailable Titus Guerrero, Michi Randall MD, FACS Unavailable Unavailable Titus Guerrero, Michi Randall MD, FACS Unavailable Unavailable Titus Guerrero, Michi Randall MD, FACS Unavailable Unavailable Titus Guerrero, Michi Randall MD, FACS Unavailable Unavailable Titus Guerrero, Michi Randall MD, FACS Unavailable Unavailable Titus Guerrero, Michi Randall MD, FACS Unavailable Unavailable Titus Guerrero, Michi Randall MD, FACS Unavailable Unavailable Titus Guerrero, Michi Randall MD, FACS Unavailable Unavailable Titus Guerrero, Michi Randall MD, FACS Unavailable Unavailable Titus Guerrero, Michi Randall MD, FACS Unavailable Unavailable Titus Guerrero, Michi Randall MD, FACS Unavailable Unavailable Titus Guerrero, Michi Randall MD, FACS Unavailable Unavailable Titus Guerrero, Michi Randall MD, FACS Unavailable Unavailable Titus Guerrero, Michi Randall MD, FACS Unavailable Unavailable Titus Guerrero, Michi Randall MD, FACS Unavailable Unavailable Titus Guerrero, Michi Randall MD, FACS Unavailable Unavailable Titus Guerrero, Michi Randall MD, FACS Unavailable Unavailable Titus Guerrero, Michi Randall MD, FACS Unavailable Unavailable Titus Guerrero, Michi Randall MD, FACS Unavailable Unavailable Titus Guerrero, Michi Randall MD, FACS Unavailable Unavailable Titus Guerrero, Michi Randall MD, FACS Unavailable Unavailable Titus Guerrero, Michi Randall MD, FACS Unavailable Unavailable Titus Guerrero, Michi Randall MD, FACS Unavailable Unavailable Tacho Guerrero, Michi Randall MD, FACS Unavailable Unavailable Tacho Guerrero, Michi Randall MD, FACS Unavailable Unavailable Jenniffer, Agatha Ru Unavailable Unavailable Jenniffer, Agatha Ru Unavailable Unavailable Sebring, Agatha Ru Unavailable Unavailable Jenniffer, Agatha Ru Unavailable Unavailable Jenniffer, Agatha Ru Unavailable Unavailable Sebring, Agatha Ru Unavailable Unavailable Sebring, Agatha Ru Unavailable Unavailable Sebring, Agatha Ru Unavailable Unavailable KELLY, O ANKUR MD Unavailable Unavailable KELLY, O ANKUR MD Unavailable Unavailable KELLY, O ANKUR MD Unavailable Unavailable KELLY, O ANKUR MD Unavailable Unavailable KELLY, O ANKUR MD Unavailable Unavailable KELLY, O ANKUR MD Unavailable Unavailable KELLY, O ANKUR MD Unavailable Unavailable KELLY, O ANKUR MD Unavailable Unavailable KELLY, O ANKUR MD Unavailable Unavailable KELLY, O ANKUR MD Unavailable Unavailable KELLY, O ANKUR MD Unavailable Unavailable KELLY, O ANKUR MD Unavailable Unavailable KELLY, O ANKUR MD Unavailable Unavailable KELLY, O ANKUR MD Unavailable Unavailable KELLY, O ANKUR MD Unavailable Unavailable KELLY, O ANKUR MD Unavailable Unavailable KELLY, O ANKUR SUBRAMANIAN Unavailable Unavailable KELLY, O ANKUR MD Unavailable Unavailable KELLY, O ANKUR MD Unavailable Unavailable KELLY, O ANKUR MD Unavailable Unavailable KELLY, O ANKUR MD Unavailable Unavailable KELLY, O ANKUR MD Unavailable Unavailable KELLY, O ANKUR MD Unavailable Unavailable KELLY, O ANKUR MD Unavailable Unavailable KELLY, O ANKUR MD Unavailable Unavailable KELLY, O ANKUR MD Unavailable Unavailable KELLY, O ANKUR MD Unavailable Unavailable KELLY, O ANKUR MD Unavailable Unavailable KELLY, O ANKUR MD Unavailable Unavailable KELLY, O ANKUR MD Unavailable Unavailable KELLY, O ANKUR SUBRAMANIAN Unavailable Unavailable KELLY, O ANKUR SUBRAMANIAN Unavailable Unavailable KELLY, O ANKUR SUBRAMANIAN Unavailable Unavailable KELLY, O ANKUR SUBRAMANIAN Unavailable Unavailable KELLY, O ANKUR SUBRAMANIAN Unavailable Unavailable KELLY, O ANKUR SUBRAMANIAN Unavailable Unavailable KELLY, O ANKUR SUBRAMANIAN Unavailable Unavailable KELLY, O ANKUR SUBRAMANIAN Unavailable Unavailable KELLY, O ANKUR MD Unavailable Unavailable KELLY, O ANKUR SUBRAMANIAN Unavailable Unavailable KELLY, O ANKUR SUBRAMANIAN Unavailable Unavailable Francisco Billings MD Unavailable Unavailable Francisco Billings MD Unavailable Unavailable Francisco Billings MD Unavailable Unavailable Francisco Billings MD Unavailable Unavailable Francisco Billings MD Unavailable Unavailable Francisco Billings MD Unavailable Unavailable Francisco Billings MD Unavailable Unavailable Francisco Billings MD Unavailable Unavailable Vaneenenaam, Francisco Schofield MD Unavailable Unavailable Vaneenenaam, Francisco Schofield MD Unavailable Unavailable Vaneenenaam, Francisco Schofield MD Unavailable Unavailable Vaneenenaam, Francisco Schofield MD Unavailable Unavailable Vaneenenaam, Francisco Schofield MD Unavailable Unavailable Vaneenenaam, Francisco Schofield MD Unavailable Unavailable Vaneenenaam, Francisco Schofield MD Unavailable Unavailable Vaneenenaam, Francisco Schofield MD Unavailable Unavailable Vaneenenaam, Francisco Schofield MD Unavailable Unavailable Vaneenenaam, Francisco Schofield MD Unavailable Unavailable Vaneenenaam, Francisco Schofield MD Unavailable Unavailable Vaneenenaam, Francisco Schofield MD Unavailable Unavailable Vaneenenaam, Francisco Schofield MD Unavailable Unavailable Vaneenenaam, Francisco Schofield MD Unavailable Unavailable Vaneenenaam, Francisco Schofield MD Unavailable Unavailable Vaneenenaam, Francisco Schofield MD Unavailable Unavailable Vaneenenaam, Francisco Schofield MD Unavailable Unavailable Vaneenenaam, Francisco Schofield MD Unavailable Unavailable Vaneenenaam, Francisco Schofield MD Unavailable Unavailable Vaneensharonaam, Francisco Schofield MD Unavailable Unavailable Vaneensharonaam, Francisco Schofield MD Unavailable Unavailable Vaneenenaam, Francisco Schofield MD Unavailable Unavailable Vaneenenaam, Francisco Schofield MD Unavailable Unavailable Vaneenenaam, Francisco Shcofield MD Unavailable Unavailable Vaneenenaam, Farncisco Schofield MD Unavailable Unavailable Vaneensharonaam, Francisco Schofield MD Unavailable Unavailable Vaneensharonaam, Francisco Schofield MD Unavailable Unavailable Vaneensharonaam, Francisco Schofield MD Unavailable Unavailable Vaneenenaam, Francicso Schofield MD Unavailable Unavailable Vaneenenaam, Francisco Schofield MD Unavailable Unavailable Vaneenenaam, Francisco Schofield MD Unavailable Unavailable Vaneenenaam, Francisco Schofield MD Unavailable Unavailable Vaneenenaam, Francisco Schofield MD Unavailable Unavailable Vaneenenaam, Francisco Schofield MD Unavailable Unavailable Virgie, L Aurelia RN NEUROSURGICAL Unavailable Unavailable Virgie, L Aurelia RN NEUROSURGICAL Unavailable Unavailable Virgie, L Aurelia RN NEUROSURGICAL Unavailable Unavailable Virgie, L Aurelia RN NEUROSURGICAL Unavailable Unavailable Virgie, L Aurelia RN NEUROSURGICAL Unavailable Unavailable Virgie, L Aurelia RN NEUROSURGICAL Unavailable Unavailable Virgie, L Aurelia RN NEUROSURGICAL Unavailable Unavailable Virgie, L Aurelia RN NEUROSURGICAL Unavailable Unavailable Virgie, L Aurelia RN NEUROSURGICAL Unavailable Unavailable Virgie, L Aurelia RN NEUROSURGICAL Unavailable Unavailable Virgie, L Aurelia RN NEUROSURGICAL Unavailable Unavailable Virgie, L Aurelia RN NEUROSURGICAL Unavailable Unavailable Virgie, L Aurelia RN NEUROSURGICAL Unavailable Unavailable Virgie, L Aurelia RN NEUROSURGICAL Unavailable Unavailable Virgie, L Aurelia RN NEUROSURGICAL Unavailable Unavailable Virgie, L Aurelia RN NEUROSURGICAL Unavailable Unavailable Virgie, L Aurelia RN NEUROSURGICAL Unavailable Unavailable Virgie, L Aurelia RN NEUROSURGICAL Unavailable Unavailable Virgie, L Aurelia RN NEUROSURGICAL Unavailable Unavailable Virgie, L Aurelia RN NEUROSURGICAL Unavailable Unavailable Virgie, L Aurelia RN NEUROSURGICAL Unavailable Unavailable Virgie, L Aurelia RN NEUROSURGICAL Unavailable Unavailable Re-disclosure Warning The records that you are about to access may contain information from federally-assisted alcohol or drug abuse programs. If such information is present, then the following federally mandated warning applies: This information has been disclosed to you from records protected by federal confidentiality rules (42 CFR part 2). The federal rules prohibit you from making any further disclosure of this information unless further disclosure is expressly permitted by the written consent of the person to whom it pertains or as otherwise permitted by 42 CFR part 2. A general authorization for the release of medical or other information is NOT sufficient for this purpose. The Federal rules restrict any use of the information to criminally investigate or prosecute any alcohol or drug abuse patient.The records that you are about to access may contain highly sensitive health information, the redisclosure of which is protected by Article 27-F of the [facility] Public Health law. If you continue you may have access to information: Regarding HIV / AIDS; Provided by facilities licensed or operated by the [facility] Office of Mental Health; or Provided by the [facility] Office for People With Developmental Disabilities. If such information is present, then the following [facility] mandated warning applies: This information has been disclosed to you from confidential records which are protected by state law. State law prohibits you from making any further disclosure of this information without the specific written consent of the person to whom it pertains, or as otherwise permitted by law. Any unauthorized further disclosure in violation of state law may result in a fine or custodial sentence or both. A general authorization for the release of medical or other information is NOT sufficient authorization for further disc losure. Allergies and Adverse Reactions Type Description Substance Reaction Status Data Source(s ) Drug allergy Bactrim sulfamethoxazole / trimethoprim Hives [facility]ive [facility] Family History Family Member Name Family Member Gender Family Member Status Date o f Status Description Data Source(s) Unknown Unknown Problem [facility] Unknown Male Problem [facility] Unknown Female Problem [facility] ([facility]) Unknown Female Problem [facility] ([facility]) Encounters Encounter Providers Location Date Indications Data Source(s ) Outpatient Attender: Aurelia Figueroa/Gurdon/Anders/Reindl 07/05/2020 07:30:00 AM EST MED[facility] ([facility] [place] [address] [facility] [facility] [address] 07/05/2020 12:00:00 AM EST eCW1 ([facility]) [place] [address] [facility] [facility] [address] 07/04/2020 12:00:00 AM EST eCW1 ([facility]) Office Visit Attender: Ru Figueroa/Gurdon/Anders/Reindl 06/26/2020 07:30:00 AM EST MEDENT ([facility]) Outpatient Attender: Harley Oliver MD Main Office 05/31/2020 09:30:00 AM EST MEDENT ([facility]) Outpatient<td ID="encounterTypeDescripti onID0">6 Month Follow-Up</td><td>Prakash Wiggins MD, FACS</td><td>Prakash Wiggins MD [facility]</td><td>04/24/2020</td><td>6:58AM</td><td>7:25AM</td><td><content ID="encounterDiagnosisID0-0">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</content>, <content ID="encounterDiagnosisID0-1">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</content>, <content ID="encounterDiagnosisID0-2">Pinguecula Bilateral</content>, <content ID="encounterDiagnosisID0-3">Dry Eye Syndrome Both Eyes</content>, <content ID="encounterDiagnosisID0-4">Taking Medication For Diabetes Long-term Use of Oral Hypoglycemics</content></td> Attender: Prakash Guerrero MD, FACS Prakash Wiggins MD [facility] 04/24/2020 06:58:00 AM EDT - 04/24/2020 07:25:00 AM ED T Taking Medication For Diabetes Long-term Use of Oral Hypoglycemics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Pinguecula Bilateral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Dry Eye Syndrome Both Eyes DONAVON (Prakash Guerrero MD [facility]) Taking Medication For Diabetes Long-term Use of Oral Hypoglycemics Type 2 Diab W/ Diab Retinopathy Mild Non prolif Without Macular Edema Pinguecula Bilateral Type 2 Diab W/ Diab Retinopathy Mod Nonp rolif Without Macular Edema Dry Eye Syndrome Both Eyes Outpatient Attender: ANKUR Figueroa/Georgie/Anders/Re indl 04/18/2020 11:15:00 AM EDT MEDENT ([facility]) Outpatient Attender: Francisco Billings MD Physical Therap y 03/27/2020 03:00:00 PM EDT MED[facility] ([facility]) [place] [address] [facility] [address] 01/04/2020 12:00:00 AM EDT eCW1 ([facility]) [place] [address] 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</content>, <content ID="encounterDiagnosisID1-2">Assessment of Taking Medication For Diabetes Long-term Use of Oral Hypoglycemics</content>, <content ID="encounterDiagnosisID1-3">Pinguecula Bilateral</content>, <content ID="encounterDiagnosisID1-4">Dry Eye Syndrome Both Eyes</content></td> Attender: Prakash Guerrero MD, FACS Prakash Wiggins MD [facility] 09/29/2019 07:38:00 AM EST - 09/29/2019 08:10:00 AM EST Assessment of Taking Medication For Diab etes Long- term Use of Oral Hypoglycemics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Assessment of Taking Medication For Diabetes Long-term Use of Oral Hypoglycemics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Assessment of Taking Medication For Diabetes Long-term Use of Oral Hypoglycemics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Pinguecula Bilateral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Pinguecula Bilateral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Pinguecula Bilateral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Dry Eye Syndrome Both EyesDry Eye Syndrome Both EyesDry Eye Syndrome Both Eyes [facility] (Prakash Guerrero MD [facility]) Assessment of Taking Medication For Diab etes Long-term Use of Oral Hypoglycemics Type 2 Diab W/ Diab Retinopathy Mild Non prolif Without Macular Edema Assessment of Taking Medication For Diab etes Long-term Use of Oral Hypoglycemics Type 2 Diab W/ Diab Retinopathy Mild Non prolif Without Macular Edema Assessment of Taking Medication For Diab etes Long-term Use of Oral Hypoglycemics Type 2 Diab W/ Diab Retinopathy Mild Non prolif Without Macular Edema Pinguecula Bilateral Type 2 Diab W/ Diab Retinopathy Mod Nonp rolif Without Macular Edema Pinguecula Bilateral Type 2 Diab W/ Diab Retinopathy Mod Nonp rolif Without Macular Edema Pinguecula Bilateral Type 2 Diab W/ Diab Retinopathy Mod Nonp rolif Without Macular Edema Dry Eye Syndrome Both Eyes Dry Eye Syndrome Both Eyes Dry Eye Syndrome Both Eyes [facility] [address] [place] [id number] 09/28/2019 12:00:00 AM EST eCW1 ([facility]) Outpatient Attender: Aurelia Garvin NP Main Office 07/04/2019 07:30:00 AM EST [facility] ([facility] Medications Medication Brand Name Start Date Product Form Dose Route Admi nistrative Instructions Pharmacy Instructions Status Indications Reaction Description Data Source(s) Suprep Bowel Prep Kit Suprep Bowel Prep Kit 05/31/2020 12:00:00 AM EST active MED[facility] ([facility]) Aspirin 81 MG Delayed Release Oral Tablet Aspirin 81 2019 12:00:00 AM EDT ORAL active MEDENT ( [facility]) Ascorbic Acid 60 MG / Beta Carotene 5000 UNT / Copper Sulfate 40 MG / dl-alpha tocopheryl acetate 30 UNT / Sodium Selenite 0.04 MG / Zinc Oxide 40 MG Oral Tablet One-A-Day Mens 50+ 01/30/2020 12:00:00 AM EDT ORAL active MEDENT ([facility]) Omeprazole 20 MG Delayed Release Oral Capsule Omeprazole 01/30/2020 12:00:00 AM EDT ORAL active [facility] ([facility]) Ranitidine 150 MG Oral Tablet [Zantac] Zantac 150MG Or al Tablet Zantac 150MG Oral Tablet 08/04/2017 12:00:00 AM EST aborte d ranitidine 150 MG Oral Tablet [Zantac] DON[facility] (Prakash Guerrero MD [facility]) Tamsulosin hydrochloride 0.4 MG Oral Capsule Tamsulosi n HCl 0.4 MG OR CAPS Tamsulosin HCl 0.4 MG OR CAPS 01/13/2014 12:00:00 AM EDT 1 aborted tamsulosin hydrochloride 0.4 MG Oral Capsule DON[facility] (Prakash Guerrero MD [facility]) sildenafil 100 MG Oral Tablet [Viagra] Viagra 100 MG O R TABS Viagra 100 MG OR TABS 01/13/2014 12:00:00 AM EDT aborted sildenafil 100 MG Oral Tablet [Viagra] [facility] (Prakash Guerrero MD [facility]) Insurance Providers Payer name Policy type / Coverage type Policy ID Covered alliance party ID Covered alliance party's relationship to jorgensen Policy Jorgensen Plan Information MEDICARE COMPLETE [id number] SP [id number] MEDICARE COMPLETE [id number] SP [id number] [facility] OPTIONS [id number] SP [id number] SELF PAY ONLY SP Lifetime Benefit Solut [facility] Part B [id number] Self [id number] [facility] Healthcare Options [facility] Part B [id number] Self [id number] Medicare (Part B) Medicare Primary [id number] Self [id number] c-Medicare Solutions Commercial [id number] Self [id number] BC/BS Of [facility] Medigap Part B [id number] Self [id number] Cigna Open Access MVP Commercial [id number] Self [id number] Carefirst BC/BS Of [place] Medigap Part B [id number] Self [id number] Lifetime Benefit Solut Medigap Part B [id number] Self [id number] [facility] Options Medigap Part B [id number] Self [id number] Medicare (Part B) Medicare Primary [id number] Self [id number] c-Medicare Solutions Commercial [id number] Self [id number] ANSI-Medicare Part B [id number] [facility] Opt Medigap Part B [id number] Self [id number] Medicare Natl Govt Serv Medicare Primary [id number] Self [id number] [facility] Exent Commercial [id number] Self [id number] Lifetime Benefit ([employer]) Commercial [id number] Self [id number] [facility]/ Health Care Options Medigap Part B [id number] Self [id number] Medicare - NGS Medicare Primary [id number] Self [id number] [facility] Medicare Commercial [id number] Self [id number] ANSI-Medicare Part B [id number] [place] [employer] ([facility]) Commercial [id number] Self [id number] BS [place] Medigap Part B [id number] Self [id number] BS [place] Medigap Part B [id number] Self [id number] ANSI-Medicare Part B [id number] Lifetime Benefit Solut Medigap Part B [id number] Self [id number] [facility] Options Medigap Part B [id number] Self [id number] Medicare (Part B) Medicare Primary [id number] Self [id number] [facility]-Medicare Solutions Commercial [id number] Self [id number] MEDICARE COMPLETE [id number] SP [id number] [facility]/ Health Care Options Medigap Part B [id number] Self [id number] Medicare - NGS Medicare Primary [id number] Self [id number] AARP HEALTH CARE OPTIONS [id number] SP [id number] MEDICARE [id number] SP [id number] [facility] Healthcare Options Medigap Part B [id number] Self [id number] [place] Primary [id number] Self [id number] [facility] Healthcare Options Medigap Part B [id number] Self [id number] [place] Primary [id number] Self [id number] Lifetime Benefit Solut Medigap Part B [id number] Self [id number] [facility] Healthcare Options Medigap Part B [id number] Self [id number] Medicare (Part B) Medicare Primary [id number] Self [id number] MEDICARE [id number] SP [id number] MEDICARE [id number] SP [id number] [facility] Healthcare Opt Medigap Part B [id number] Self [id number] Medicare Natl Govt Servic Medicare Primary [id number] Self [id number] [facility] Healthcare Options Medigap Part B [id number] Self [id number] [place] Primary [id number] Self [id number] MEDICARE C [id number] S [id number] A AARP O [id number] S [id number] [facility] Healthcare Options Medigap Part B [id number] Self [id number] [place] Primary [id number] Self [id number] [facility] Healthcare Options Medigap Part B [id number] Self [id number] [place] Primary [id number] Self [id number] [facility] Healthcare Options Medigap Part B [id number] Self [id number] [place] Primary [id number] Self [id number] [place] Primary Self BS [place] Medigap Part B Self BS [place] Medigap Part B Self [facility] Healthcare Options Medigap Part B Self MEDICARE C [id number] S [id number] [place] Primary Self AARP HEALTH CARE OPTIONS [id number] SP [id number] Aarp Healthcare Opt Medigap Part B Plan F Self Plan F Medicare Natl Govt Servic Medicare Primary Self Lifetime Benefit (Rmsco) Commercial Pos Self Pos Aarp [facility] Opt Medigap Part B Self BC/BS Of [place] Ppo Medigap Part B Self Cigna Open Access MVP Commercial Self Carefirst BC/BS [facility] Medihillman Part B Self Lifetime Benefit Solut Medigap Part B Self Aarp Healthcare Options Medigap Part B Self Medicare (Part B) Medicare Primary Self LIFETIME BENEFIT SOLUTIONS [id number] SP [id number] [employer] MEDICAL CLAIMS [id number] SP [id number] [employer] P [id number] S [id number] [employer] P UNAVAILABLE S UNAVAILA BLE Problems, Conditions, and Diagnoses Code Display Name Description Problem Type Effective Dates Data Source(s) 04454312 Obstructive sleep apnea syndrome Obstructive sle ep apnea syndrome Problem 07/05/2020 12:00:00 AM EST MEDENT ([facility]idro) [id number] Screening for malignant neoplasm of colo n Screening for malignant neoplasm of colon Problem 05/31/2020 12:00:00 AM EST MED[facility] ([facility]) R20.2 [id number] Notalgia paresthetica Problem 09/28/2019 12: 00:00 AM EST [facility] R20.2 [id number] Notalgia paresthetica Problem 09/28/2019 12: 00:00 AM EST eCW1 [facility]) [id number] Obstructive sleep apnea syndrome Obstructive sle ep apnea syndrome Problem 07/04/2019 12:00:00 AM EST [facility] ([facility] Surgeries/Procedures Procedure Description Date Indications Data Source(s) Lap Inguinal Hernia Repair 06/19/2020 12:00:00 AM EST MEDENT ([facility], ) Diabetic Retinal Eye Exam 04/24/2020 12:00:00 AM EDT MED[facility] ([facility]) Intermediate Eye Exam Established Patient Intermediate Eye Exam Established Patient 04/24/2020 12:00:00 AM EDT DONAVON (Brian Guerrero MD [facility]) X-Ray Hip Unilateral With Pelvis 2-3 Views 03/27/2020 12:00:00 AM EDT MEDENT ([facility] ) Diabetic Retinal Eye Exam 09/29/2019 12:00:00 AM EST MEDENT ([facility]) Surgical / procedural history : Vasectomy, Radical Pro statectomy Surgical / procedural history : Vasectomy, Radical Prostatectomy 09/29/2019 12:00:00 AM EST DONAVON (Prakash Guerrero MD [facility]) Comprehensive eye exam established patient (Signi/Sep Eval. & Man.) Comprehensive eye exam established patient (Signi/Sep Eval. & Man.) 09/29/2019 12:00:00 AM EST DONAVON (Prakash Guerrero MD [facility]) Scodi Retina, with interpretation and re port (WAIVER OF LIABILITY ON FILE (ABN)) Scodi Retina, with interpretation and re port (WAIVER OF LIABILITY ON FILE (ABN)) 09/29/2019 12:00:00 AM EST DONAVON (Brian Guerrero MD [facility]) Reported medical history : GERD, Kidney Stones, Enlarg ed prostate Reported medical history : GERD, Kidney Stones, Enlarged prostate 09/29/2019 12:00:00 AM EST DONAVON (Prakash Guerrero MD [facility]) History of diabetes mellitus A1c: 6.[address] Gonzalez in April FBS: does not check often History of diabetes mellitus A1c: 6.[address] Gonzalez in April FBS: does not check often 09/29/2019 12:00:00 AM EST GREENWA Y (Prakash Guerrero MD [facility]) History of the retina was abnormal 12/28/2018 History o f the retina was abnormal 12/28/2018 09/29/2019 12:00:00 AM EST DONAVON (Brian Guerrero MD [facility]) Recent change in medical history Radical Prostatectom y Recent change in medical history Radical Prostatectomy 09/29/2019 12:00:00 AM EST G REENWAY (Prakash Guerrero MD [facility]) COMPUTERIZED OPHTHALMIC IMAGING RETINA Scodi Retina, w ith interpretation and report (GA) 09/29/2019 12:00:00 AM EST DONAVON (Brian Guerrero MD [facility]) Comprehensive eye exam established patient (25) Alberto sandersive eye exam established patient (25) 09/29/2019 12:00:00 AM EST DONAVON (Prakash Guerrero MD [facility]) Office Visit, New Pt., Level 3 PC 09/28/2019 12:00:00 AM EST [facility]) TANGNTL BX SKIN SINGLE LES 09/28/2019 12:00:00 AM EST eCW1 ([facility]) TANGNTL BX SKIN EA SEP/ADDL 09/28/2019 12:00:00 AM EST eCW1 ([facility]) Results ID Date Data Source [id number] 08/22/2020 09:00:00 AM EST [facility] Name Value Range Interpretation Code Description Data Ailin rce(s) Supporting Document(s) SARS coronavirus 2 RNA Not Detected [facility] [place] This lab was ordered by [facility] and reported by [facility]. ID Date Data Source URINE CULTURE 07/04/2020 12:00:00 AM EST eCW1 ([facility]) Name Value Range Interpretation Code Description Data Ailin rce(s) Supporting Document(s) Laboratory studies (set) URINE CULTU RE eCW1 ([facility]) ID Date Data Source UA URINALYSIS 07/04/2020 12:00:00 AM EST eCW1 ([facility]) Name Value Range Interpretation Code Description Data Ailin rce(s) Supporting Document(s) Laboratory studies (set) UA URINALYS IS eCW1 ([facility]) ID Date Data Source [id number] 06/19/2020 10:59:00 AM EST [facility] ([facility] ) Name Value Range Interpretation Code Description Data Ailin rce(s) Supporting Document(s) Glucose [Mass/volume] in Capillary blood by Glucometer 200 mg/dL 80-115 Above high normal MEDENT ([facility], ) ID Date Data Source [id number] 06/19/2020 10:59:00 AM EST MEDENT ([facility]) Name Value Range Interpretation Code Description Data Ailin rce(s) Supporting Document(s) Bedside Glucose 200 mg/dL 80-115 MED[facility] ([facility]) ID Date Data Source [id number] 06/19/2020 07:46:00 AM EST [facility] ([facility]) Name Value Range Interpretation Code Description Data Ailin rce(s) Supporting Document(s) Glucose [Mass/volume] in Capillary blood by Glucometer 205 mg/dL 80-115 Above high normal [facility] ([facility]) ID Date Data Source [id number] 06/19/2020 07:46:00 AM EST MEDENT ([facility]) Name Value Range Interpretation Code Description Data Ailin rce(s) Supporting Document(s) Bedside Glucose 205 mg/dL 80-115 [facility] ([facility]) ID Date Data Source [id number] 06/19/2020 07:41:00 AM EST [facility] Name Value Range Interpretation Code Description Data Ailin rce(s) Supporting Document(s) Creatinine For GFR 1.34 mg/dL 0.70-1.30 Above high normal [facility] ([facility]) Blood Urea Nitrogen 16 mg/dL 7-18 Normal (applies to non-nume guru results) [facility] ([facility]) Glucose, Fasting 197 mg/dL 70-100 Above high [facility] Glomerular Filtration Rate 56.3 Normal (applies to n on-numeric results) [facility]) <content>Units are mL/min/1.73 m2</content>
<content></content>
<content>Chronic Kidney Disease Staging per NKF:</content>
<content></content>
<content>Stage I & II GFR >=60 Normal to Mildly Decreased</content>
<content>Stage III GFR 30- 59 Moderately Decreased</content>
<content>Stage IV GFR 15-29 Severely Decreased</content>
<content>Stage V GFR <15 Very Little GFR Left</content>
<content>ESRD GFR <15 on SENIOR QUALITY CONTROL TECHNICIAN</content>
<content></content> Sodium Level 139 meq/L 136-145 Normal (applies to non-numeric res ults) [facility] ([facility]) Potassium Serum 4.4 meq/L 3.5-5.1 Normal (applies to non-numeric results) [facility] Chloride Level 106 meq/L 98-107 Normal (applies to non-numeric r esults) [facility] Carbon Dioxide Level 27 meq/L 21-32 Normal (applies to non-num ozzy results) [facility] ([facility]) Anion Gap 6 meq/L 8-16 Below low normal [facility] ( [facility]) Calcium Level 9.4 mg/dL 8.8-10.2 Normal (applies to non-numeric re sults) [facility] ([facility]) ID Date Data Source [id number] 06/19/2020 07:41:00 AM EST [facility] Name Value Range Interpretation Code Description Data Ailin rce(s) Supporting Document(s) Creatinine For GFR 1.34 mg/dL 0.70-1.30 [facility]) Blood Urea Nitrogen 16 mg/dL 7-18 [facility] Glomerular Filtration Rate 56.3 MED E[facility] ([facility]) <content>Units are mL/min/1.73 m2</content>
<content></content>
<content>Chronic Kidney Disease Staging per NKF:</content>
<content></content>
<content>Stage I & II GFR >=60 Normal to Mildly Decreased</content>
<content>Stage III GFR 30- 59 Moderately Decreased</content>
<content>Stage IV GFR 15-29 Severely Decreased</content>
<content>Stage V GFR <15 Very Little GFR Left</content>
<content>ESRD GFR <15 on SENIOR QUALITY CONTROL TECHNICIAN</content>
<content></content> Glucose, Fasting 197 mg/dL 70-100 MED[facility] ([facility]) Chloride Level 106 meq/L 98-107 [facility] Potassium Serum 4.4 meq/L 3.5-5.1 [facility]) Sodium Level 139 meq/L 136-145 [facility] ([facility]) Carbon Dioxide Level 27 meq/L 21-32 MED[facility] ([facility]) Calcium Level 9.4 mg/dL 8.8-10.2 MED[facility] ([facility]) Anion Gap 6 meq/L 8-16 [facility] ([facility]) ID Date Data Source [id number] 06/14/2020 10:00:00 AM EST [facility] Name Value Range Interpretation Code Description Data Ailin rce(s) Supporting Document(s) SARS coronavirus 2 RNA [facility] This lab was ordered by [facility] and reported by [facility]. ID Date Data Source [id number] 03/26/2020 08:08:00 AM EDT MEDENT ([facility]) Name Value Range Interpretation Code Description Data Ailin rce(s) Supporting Document(s) Microalbumin Urine 33.9 mg/L 1.3-20.0 MEDENT ([facility]) Microalb/Creat Ratio 21.4 ug/mg 0.0-30.0 [facility] ( [facility]) Urine Creatinine 158.3 mg/dL 30.0-125.0 [facility] ([facility]) ID Date Data Source [id number] 03/26/2020 08:08:00 AM EDT MEDENT ([facility]) Name Value Range Interpretation Code Description Data Ailin rce(s) Supporting Document(s) Thyrotropin [Units/volume] in Serum or Plasma by Detec tion limit <= 0.05 mIU/L 2.72 uIU/mL 0.36-3.74 [facility] ([facility] ) ID Date Data Source [id number] 03/26/2020 08:08:00 AM EDT MEDENT ([facility]) Name Value Range Interpretation Code Description Data Ailin rce(s) Supporting Document(s) Cholesterol in HDL [Mass/volume] in Serum or Plasma 36 mg/dL 35-60 [facility] ([facility]) Cholesterol [Mass/volume] in Serum or Plasma 149 mg/dL 131-200 [facility] ([facility]) Triglyceride [Mass/volume] in Serum or Plasma 167 mg/dL 30-150 [facility] ([facility]) Cholesterol in LDL [Mass/volume] in Serum or Plasma by calcu lation 80 CALC 50-159 [facility] ([facility]) ID Date Data Source [id number] 03/26/2020 08:08:00 AM EDT MEDENT ([facility]) Name Value Range Interpretation Code Description Data Ailin rce(s) Supporting Document(s) Urea nitrogen [Mass/volume] in Serum or Plasma 21 mg/dL 7-18 [facility] ([facility]) Creatinine 1.2 mg/dL 0.6-1.3 MED[facility] ([facility]) Glucose [Mass/volume] in Serum or Plasma 130 mg/dL 74-99 [facility] ([facility]) 100-125 mg/dL PRE-DIABETES/FASTING >126 mg/dL DIABETES/FASTING Chloride [Moles/volume] in Serum or Plasma 106 meq/L 98-107 [facility] ([facility]) Potassium [Moles/volume] in Serum or Plasma 4.5 meq/L 3.5-5.1 [facility] ([facility]) Sodium [Moles/volume] in Serum or Plasma 143 meq/L 136-145 [facility] ([facility]) Carbon dioxide, total [Moles/volume] in Serum or Plasma 27 meq/L 21 -32 [facility] ([facility]) Total Bilirubin 0.6 mg/dL 0.2-1.0 [facility] ([facility]) Calcium [Mass/volume] in Serum or Plasma 8.9 mg/dL 8.5-10.1 [facility] ([facility]) Alkaline phosphatase isoenzyme [Units/volume] in Serum or Pl asma 68 mg/dL 46-116 [facility] ([facility]) Alanine aminotransferase [Enzymatic activity/volume] in Seru m or Plasma 42 U/L 12-78 [facility] ([facility]) Aspartate aminotransferase [Enzymatic activity/volume] in Serum or Plasma 27 U/L 15-37 [facility] ([facility] ) Albumin [Mass/volume] in Serum or Plasma 4.2 g/dL 3.4-5.0 [facility] ([facility]) Proteinase 3 Ab [Units/volume] in Serum 7.2 g/dL 6.4-8.2 [facility] Glomerular filtration rate/1.73 sq M pre dicted among blacks [Volume Rate/Area] in Serum or Plasma by Creatinine-based formula (MDRD) Laboratory test result [facility] ([facility]) <content>CHRONIC KIDNEY DISEASE STAGING PER NKF</content>
<content></content>
<content>STAGE I & II GFR >= 60 NORMAL TO MILDLY DECREASED</content>
<content>STAGE III GFR 30-59 MODERATELY DECREASED</content>
<content>STAGE IV GFR 15-29 SEVERELY DECREASED</content>
<content>STAGE V GFR <15 VERY LITTLE GFR LEFT</content>
<content>ESRD GFR <15 ON SENIOR QUALITY CONTROL TECHNICIAN</content>
<content></content> A/G Ratio 1.40 CALC 1.00-1.90 [facility] Glomerular filtration rate/1.73 sq M pre dicted among non-blacks [Volume Rate/Area] in Serum or Plasma by Creatinine-based formula (MDRD) Laboratory test result [facility] ([facility] ) ID Date Data Source [id number] 03/26/2020 08:08:00 AM EDT [facility] Name Value Range Interpretation Code Description Data Ailin rce(s) Supporting Document(s) Hemoglobin A1c/Hemoglobin.total in Blood 6.3 g/dL 4.8-5.6 [facility] ([facility]) Lab Result Notes: Pre-Diabetes 5.7 - 6.4 % Diabetes = or > 6.5% Glucose mean value [Mass/volume] in Blood Estimated fr om glycated hemoglobin 134 mg/dL 60-110 [facility] ([facility] ) ID Date Data Source [id number] 03/26/2020 08:08:00 AM EDT [facility] ([facility]) Name Value Range Interpretation Code Description Data Ailin rce(s) Supporting Document(s) Erythrocytes [#/volume] in Blood by Automated count 4.60 x10*6/UL 4.2 0-6.30 [facility] ([facility]) Hemoglobin [Mass/volume] in Blood 13.9 g/dL 12.0-18.0 [facility] ([facility]) Leukocytes [#/volume] in Blood by Automated count 6.1 x10*3/UL 4.1-10 .9 [facility] ([facility]) MCH 30.3 pg 26.0-32.0 [facility] Hematocrit [Volume Fraction] of Blood by Automated count 39.0 % 3 7.0-51.0 [facility] ([facility]) MCV 84.7 fL 80.0-97.0 [facility] ([facility]) MCHC 35.8 g/dL 31.0-38.0 [facility] ([facility]) Erythrocyte distribution width [Ratio] by Automated count 12.8 % 11.6-13.7 [facility] ([facility]) Platelets [#/volume] in Blood by Automated count 106 x10*3/UL 140-440 [facility] ([facility]) NOTE: RESULT VERIFIED. Lymph % 32.5 % 10.0-58.5 [facility] ([facility]) Mid % 9.3 % 1.7-9.3 [facility] ([facility]) Neut % 58.2 % 37.0-92.0 [facility] ([facility]) MPV 10.1 FL 7.8-11.0 [facility] ([facility]) Mid # 0.6 x10*3/UL 0.1-0.6 [facility] ([facility]) Lymph # 2.0 x10*3/UL 0.6-4.1 [facility] ([facility]) Neut # 3.5 x10*3/UL 2.0-7.8 [facility] ([facility]) Procedure Social History Code Duration Value Status Description Data Source(s ) Smoking 07/04/2020 12:00:00 AM EST Never Smoker completed Never S moker [facility] Smoking 07/04/2020 12:00:00 AM EST Never Smoker completed Never S moker eCW1 ([facility]) Smoking 04/24/2020 07:45:50 AM EDT Never smoked tobacco (findi ng) completed Never smoked tobacco (finding) DONAVON (Prakash Guerrero MD [facility]) Smoking 04/11/2020 08:24:55 AM EDT Never smoked tobacco (findi ng) completed Never smoked tobacco (finding) DONAVON (Prakash Guerrero MD [facility]) Smoking 01/31/2020 12:00:00 AM EDT Patient has never smoked co mpleted Patient has never smoked [facility] ([facility]) Smoking 01/03/2020 12:00:00 AM EDT Never Smoker completed Never S moker eCW1 ([facility]) Smoking 01/03/2020 12:00:00 AM EDT Never Smoker completed Never S moker eCW1 ([facility]) Smoking 09/29/2019 08:20:34 AM EST Never smoked tobacco (findi ng) completed Never smoked tobacco (finding) DONAVON (Prakash Guerrero MD [facility]) Vital Signs ID Date Data Source UNK Name Value Range Interpretation Code Description Data Source(s) Body surface area Derived from formula 2.34 m2 2.34 m2 [facility] Body weight 105.008 kg 105.008 kg [facility] ([facility]) [place] body weight 196 [lb_av] 196 [lb_av] MED[facility] T ([facility]) Body mass index (BMI) [Ratio] 28.9 kg/m2 28.9 k g/m2 [facility] ([facility]) Body weight 231.50 [lb_av] 231.50 [lb_av] [facility] Body height 75 [in_i] 75 [in_i] [facility] ([facility]) 6'3" Diastolic blood pressure 80 mm[Hg] 80 mm[Hg] [facility] ([facility]) Systolic blood pressure 136 mm[Hg] 136 mm[Hg] M EDENT ([facility]) Body surface area Derived from formula 2.34 m2 2.34 m2 [facility] ([facility]) Body weight 105.689 kg 105.689 kg [facility] ([facility]) [place] body weight 196 [lb_av] 196 [lb_av] [facility] Body mass index (BMI) [Ratio] 29.1 kg/m2 29.1 k g/m2 [facility] ([facility]) Body weight 233.00 [lb_av] 233.00 [lb_av] [facility] Body height 75 [in_i] 75 [in_i] [facility] ([facility]) 6'3" Body temperature 97.6 [degF] 97.6 [degF] [facility] ([facility]) Oxygen saturation in Arterial blood by Pulse oximetry 98 % 98 % [facility] ([facility]) Heart rate 66 /min 66 /min [facility] ([facility]) Diastolic blood pressure 82 mm[Hg] 82 mm[Hg] [facility] ([facility]) Systolic blood pressure 128 mm[Hg] 128 mm[Hg] [facility] Diastolic blood pressure 80 mm[Hg] 80 mm[Hg] eCW1 [facility] Systolic blood pressure 132 mm[Hg] 132 mm[Hg] e CW1 ([facility]) Body temperature 97.3 [degF] 97.3 [degF] eCW1 [facility] Respiratory rate 18 /min 18 /min eCW1 ([facility]) Heart rate 57 /min 57 /min eCW1 ([facility]) Body mass index (BMI) [Ratio] 30.11 kg/m2 30.11 kg/m2 eCW1 [facility]) Body height [in_i] eCW1 ([facility]) Body weight 222 [lb_av] 222 [lb_av] eCW1 ([facility]) Body surface area Derived from formula 2.32 m2 2.32 m2 [facility] Body weight 103.874 kg 103.874 kg [facility] ([facility]) [place] body weight 196 [lb_av] 196 [lb_av] MED[facility] T ([facility]) Body mass index (BMI) [Ratio] 28.6 kg/m2 28.6 k g/m2 [facility] Body weight 229.00 [lb_av] 229.00 [lb_av] MEDEN T ([facility]) Body height 75 [in_i] 75 [in_i] [facility] ([facility]) 6'3" Diastolic blood pressure 72 mm[Hg] 72 mm[Hg] [facility] ([facility]) Systolic blood pressure 130 mm[Hg] 130 mm[Hg] M EDENT ([facility]) Body temperature 97.3 [degF] 97.3 [degF] [facility] ([facility]) Body weight 103.421 kg 103.421 kg [facility] ([facility] Body mass index (BMI) [Ratio] 28.5 kg/m2 28.5 k g/m2 [facility] ([facility]) Heart rate 62 /min 62 /min [facility] ([facility]) Diastolic blood pressure 89 mm[Hg] 89 mm[Hg] [facility] ([facility]) Systolic blood pressure 130 mm[Hg] 130 mm[Hg] M EDENT ([facility]) Body weight 228.00 [lb_av] 228.00 [lb_av] MEDEN T ([facility]) Body height 75 [in_i] 75 [in_i] [facility] 6'3" Body surface area Derived from formula 2.29 m2 2.29 m2 [facility] ([facility]) Body weight 100.246 kg 100.246 kg [facility] ([facility]) [place] body weight 196 [lb_av] 196 [lb_av] MEDEN T ([facility]) Body mass index (BMI) [Ratio] 27.6 kg/m2 27.6 k g/m2 [facility] ([facility]) Body weight 221.00 [lb_av] 221.00 [lb_av] MED[facility] T ([facility]) Body height 75 [in_i] 75 [in_i] [facility] ([facility]) 6'3" Diastolic blood pressure 70 mm[Hg] 70 mm[Hg] [facility] Systolic blood pressure 130 mm[Hg] 130 mm[Hg] [facility] Body mass index (BMI) [Ratio] 28.4 kg/m2 28.4 k g/m2 [facility]) Oxygen saturation in Arterial blood by Pulse oximetry 98 % 98 % [facility] Air Body weight 221.38 [lb_av] 221.38 [lb_av] MEDEN T ([facility]) Body height 74 [in_i] 74 [in_i] [facility] 6'2" Heart rate 64 /min 64 /min [facility]) Diastolic blood pressure 58 mm[Hg] 58 mm[Hg] [facility]) Systolic blood pressure 120 mm[Hg] 120 mm[Hg] [facility] ([facility]) Diastolic blood pressure--sitting 64 mm[Hg] 64 mm[Hg] [facility]) large cuff, Ra Systolic blood pressure--sitting 120 mm[Hg] 120 mm[Hg] [facility]) large cuff, Ra Heart rate 55 /min 55 /min [facility] Body mass index (BMI) [Ratio] 28.4 kg/m2 28.4 k g/m2 [facility] Body height 75 [in_i] 75 [in_i] [facility] 6'3" Body weight 227.00 [lb_av] 227.00 [lb_av] MED[facility] T ([facility]) Diastolic blood pressure 70 mm[Hg] 70 mm[Hg] [facility]CW[facility] Systolic blood pressure 112 mm[Hg] 112 mm[Hg] e CW1 ([facility] Body temperature 97.3 [degF] 97.3 [degF] eCW1 [facility] Respiratory rate 18 /min 18 /min eCW1 ([facility]) Heart rate 63 /min 63 /min eCW1 ([facility]) Body mass index (BMI) [Ratio] 30.13 kg/m2 30.13 kg/m2 eCW1 [facility] Body height [in_i] eCW1 ([facility]) Body weight 222.2 [lb_av] 222.2 [lb_av] eCW1 ([facility]) Diastolic blood pressure 72 mm[Hg] 72 mm[Hg] eCW1 [facility] Systolic blood pressure 126 mm[Hg] 126 mm[Hg] e CW1 ([facility]) Body mass index (BMI) [Ratio] 31.57 kg/m2 31.57 kg/m2 eCW1 [facility]) Body height [in_us] eCW1 ([facility]) Body weight Measured 232.8 [lb_av] 232.8 [lb_av ] [facility] Body weight 103.024 kg 103.024 kg [facility] ([facility] ) Body mass index (BMI) [Ratio] 28.4 kg/m2 28.4 k g/m2 [facility] ([facility]) Body weight 227.12 [lb_av] 227.12 [lb_av] MEDEN T ([facility]) Body height 75 [in_i] 75 [in_i] [facility] ([facility]) 6'3" Diastolic blood pressure 78 mm[Hg] 78 mm[Hg] [facility] ([facility]) Systolic blood pressure 126 mm[Hg] 126 mm[Hg] M EDENT ([facility]) Body mass index (BMI) [Ratio] 30.1 kg/m2 30.1 k g/m2 [facility] ([facility] Body weight 228.00 [lb_av] 228.00 [lb_av] [facility] T ([facility] Body height 73 [in_i] 73 [in_i] [facility] ([facility] 6'1" Oxygen saturation in Arterial blood by Pulse oximetry 97 % 97 % [facility] ([facility] Room Air Heart rate 61 /min 61 /min SONDR[facility] ([facility] Diastolic blood pressure 80 mm[Hg] 80 mm[Hg] [facility] ([facility] Systolic blood pressure 120 mm[Hg] 120 mm[Hg] Phi MOTA ([facility]
--- OUTSIDE RECORDS SUMMARY | 2020-08-27 06:45 | CCD | Continuity of Care Document ---
Author Organization Unknown Address Unknown Phone Unavailable Care Team Providers Care Building Official Name Role Phone Stefano Gonzalez MD AUTM [phone] Prakash Wiggins MD AUTM [phone] Ruy Zambrano MD AUTM Unavailable [facility] AUTM [phone] [facility] Dermatology AUTM [phone] Chandu Billings MD AUTM [phone] Arun Zendejas MD AUTM [phone] Prakash Villegas DO AUTM [phone] Problems Active Problems Provider Date Male erectile [...] CPT Code Status Date Vaccine Lot # [id number] Given 05/18/2019 Influenza Vaccin e Quadrivalent Preser/Antibiotic Free Im Use [id number] Given 04/23/2018 Influenza Virus Vaccine, Quadrivalent (Cciiv4), Derived From Cell [id number] Vital Signs Date Vital Result Comment 03/27/2020 [...] H/L Range Note Laboratory test finding 06/19/2020 [address] [place], [place] [address] [phone] Bedside Glucose 200 mg/dL High 80-115 Laboratory test finding 06/19/[address] 1874135 [phone] Bedside Glucose 205 mg/dL High 80-115 Basic Metabolic Profile 06/19/[address] [address] [phone] Glucose, Fasting 197 mg/dL High 70-100 Blood [...] mg/dL Normal 8.8-10.2 Complete Blood Count 03/26/2020 [facility] Draw Hand: Dr Wayne Abernathy [place] [id number] [phone] WBC 6.1 x10*3/UL 4.1 - 10.9 RBC [...] 3.5 x10*3/UL 2.0 - 7.8 A1c 03/26/2020 [facility] Draw Hand: Dr Wayne Abernathy [place] [id number] [phone] Hba1c 6.3 g/dL High 4.8 - 5.6 3 Est Avg Glucose 134 mg/dL High 60 - 110 Comprehensive Chem Profile 03/26/2020 [facility] Draw Hand: Dr Black [place] [id number] [phone] Glucose 130 mg/dL High 74 - 99 [...] 60 mL/min >60 5 Lipid Profile 03/26/2020 [facility] , Draw Hand: [place] [address] [phone] Cholesterol 149 mg/dL 131 - 200 Triglycerides 167 mg/dL High 30 - 150 HDL Cholesterol 36 mg/dL 35 - 60 LDL (Calculated) 80 CALC 50 - 159 Laboratory test finding 03/26/2020 [facility], Draw Hand: [place] [address] [phone] Thyroid Stimulating Hormone 2.72 uIU/mL 0.3 6 - 3.74 Microalbumin/Creatinine Urine 03/26/2020 [facility], Draw Hand: Dr Wayne Sonilogg [place], [place] [id number] [phone] Microalbumin Urine 33.9 mg/L High 1.3 - [...] Little GFR Left ESRD GFR <15 on SCHOOL MANAGER 2 NOTE: RESULT VERIFIED. 3 Lab Result [...] LITTLE GFR LEFT ESRD GFR <15 ON SCHOOL MANAGER Procedures Date Code Description Status 04/24/2020 [id number] Diabetic Retinal Eye Exam Comple mackenzie 09/29/2019 [id number] Diabetic Retinal Eye Exam Comple mackenzie 12/28/2018 [id number] Diabetic Retinal Eye Exam Comple mackenzie 04/22/2018 [id number] Diabetic Retinal Eye Exam Comple mackenzie 10/24/2016 794016997 Diabetic Retinal Eye Exam Comple mackenzie 02/18/2016 [id number] Diabetic Retinal Eye Exam Comple mackenzie 01/31/2015 [id number] Diabetic Retinal Eye Exam Comple mackenzie 02/15/2010 [id number] Colonoscopy Completed Medical Devices Description No Information [...] 09/27/2020 9:20 am - Lab Schedule at [facility] * 09/28/2020 9:30 am - Stefano Gonzalze M.D. at [facility] 03/27/2020 - Stefano Gonzalez M.D.* [...] control.6. History of prostate cancer, follows with [facility] Urology - GINGER PSA undetectable.7. MARSHA - on C-PAP - 100% use at home except at camp or travel.8. Known presence of LBBB9. OA - follows with [facility] left hip artificial - to talk to Dr Cordova today about lateral pain.10. Presbycusis - has hearing aides - gets via mail away (not in today).Saw [facility] Dermatology for full evaluation - will f/u.Right inguinal hernia - saw Dr Zendejas - will f/u and expect surgery since increased issues. Functional Status Description No Information Available Mental Status Description No Information Available Referrals Refer to Dr Reason for Referral Status Appt Date Harley Oliver MD CONSULT FOR SCREENING COLONOSCOPY Jesse matthews Notified 05/31/[address] [place], [place] [address] [phone]
--- OUTSIDE RECORDS SUMMARY | 2020-08-27 06:45 | CCD | Continuity of Care Document ---
Author Organization Unknown Address Unknown Phone Unavailable Care Team Providers Care Gasket Notcher Name Role Phone Stefano Gonzalez MD AUTM [phone] Prakash Wiggins MD AUTM [phone] Ruy Zambrano MD AUTM Unavailable [facility] AUTM [phone] [facility] AUTM [phone] Chandu Billings MD AUTM [phone] Arun Zendejas MD AUTM [phone] Prakash Villegas DO AUTM [phone] Problems Active Problems Provider Date Male erectile [...] 1 by mouth every other day 90caps Stefnao Gonzalez M.D. 05/18/2019 Tylenol Extra Strength 500mg [...] CPT Code Status Date Vaccine Lot # 94459 Given 05/18/2019 Influenza Vaccin e Quadrivalent Preser/Antibiotic Free Im Use [id number] 67960 Given 04/23/2018 Influenza Virus Vaccine, Quadrivalent (Cciiv4), Derived From Cell [id number] Vital Signs Date Vital Result Comment 03/27/2020 [...] H/L Range Note Laboratory test finding 06/19/2020 [address] [place], [place] [address] [phone] Bedside Glucose 200 mg/dL High 80-115 Laboratory test finding 06/19/[address] 0[address]757 [phone] Bedside Glucose 205 mg/dL High 80-115 Basic Metabolic Profile 06/19/[address] [address] [phone] Glucose, Fasting 197 mg/dL High 70-100 Blood [...] mg/dL Normal 8.8-10.2 Complete Blood Count 03/26/2020 [facility] Automatic Folder Seamer: Dr Wayne Abernathy [place] [id number] [phone] WBC 6.1 x10*3/UL 4.1 - 10.9 RBC [...] 3.5 x10*3/UL 2.0 - 7.8 A1c 03/26/2020 [facility] Automatic Folder Seamer: Dr Wayne Abernathy [place] [id number] [phone] Hba1c 6.3 g/dL High 4.8 - 5.6 3 Est Avg Glucose 134 mg/dL High 60 - 110 Comprehensive Chem Profile 03/26/2020 [facility] Automatic Folder Seamer: Dr Black [place] [id number] [phone] Glucose 130 mg/dL High 74 - 99 [...] 60 mL/min >60 5 Lipid Profile 03/26/2020 [facility] , Automatic Folder Seamer: [place] [address] [phone] Cholesterol 149 mg/dL 131 - 200 Triglycerides 167 mg/dL High 30 - 150 HDL Cholesterol 36 mg/dL 35 - 60 LDL (Calculated) 80 CALC 50 - 159 Laboratory test finding 03/26/2020 [facility] Automatic Folder Seamer: [place] [address] [phone] Thyroid Stimulating Hormone 2.72 uIU/mL 0.3 6 - 3.74 Microalbumin/Creatinine Urine 03/26/2020 [facility], Automatic Folder Seamer: Dr Wayne Sonilogg [place], [place] [id number] [phone] Microalbumin Urine 33.9 mg/L High 1.3 - [...] Little GFR Left ESRD GFR <15 on PATHOLOGY TEACHER 2 NOTE: RESULT VERIFIED. 3 Lab Result [...] LITTLE GFR LEFT ESRD GFR <15 ON PATHOLOGY TEACHER Procedures Date Code Description Status 04/24/2020 [id number] Diabetic Retinal Eye Exam Comple mackenzie 09/29/2019 [id number] Diabetic Retinal Eye Exam Comple mackenzie 12/28/2018 524782281 Diabetic Retinal Eye Exam Comple mackenzie 04/22/2018 380185287 Diabetic Retinal Eye Exam Comple mackenzie 10/24/2016 016823216 Diabetic Retinal Eye Exam Comple mackenzie 02/18/2016 068711493 Diabetic Retinal Eye Exam Comple mackenzie 01/31/2015 416734635 Diabetic Retinal Eye Exam Comple mackenzie 02/15/2010 [id number] Colonoscopy Completed Medical Devices Description No Information [...] 09/27/2020 9:20 am - Lab Schedule at [facility] * 09/28/2020 9:30 am - Stefano Gonzalez M.D. at [facility] 03/27/2020 - Stefano Gonzalez M.D.* [...] control.6. History of prostate cancer, follows with [facility] Urology - GINGER PSA undetectable.7. MARSHA - on C-PAP - 100% use at home except at camp or travel.8. Known presence of LBBB9. OA - follows with [facility] left hip artificial - to talk to Dr Cordova today about lateral pain.10. Presbycusis - has hearing aides - gets via mail away (not in today).Saw [facility] Dermatology for full evaluation - will f/u.Right inguinal hernia - saw Dr Zendejas - will f/u and expect surgery since increased issues. Functional Status Description No Information Available Mental Status Description No Information Available Referrals Refer to Dr Reason for Referral Status Appt Date Harley Oliver MD CONSULT FOR SCREENING COLONOSCOPY Jesse matthews Notified 05/31/[address] [place], [place] [id number] [phone]
[2020-08-27] MEDS ORDERED: NS 1,000 ML IV ONE (07:00)
[2020-08-27] MEDS ORDERED: propofoL 500 MG/50 ML VIAL As Ordered ONE (07:23)
[2020-08-27] MEDS ORDERED: LIDOCAINE 2% 100MG/5ML SDV (FOR ANES.) As Ordered ONE (07:23)
--- NOTE | 2020-08-27 07:49 | ROOR ---
Patient Name: rAun Reynolds Procedure Date: 08/27/2020 7:29 AM Date of : 1950 Age: 70 Room: [facility] Gender: Male Note Status: Finalized Procedure: Total Colonoscopy to Cecum Indications: Screening for colorectal malignant neoplasm Providers: Harley Oliver MD Referring MD: Stefano Gonzalez MD Requesting Provider: Medicines: Monitored Anesthesia Care Complications: No immediate complications. Procedure: Pre-Anesthesia Assessment: - The heart rate, respiratory rate, oxygen saturations, blood pressure, adequacy of pulmonary ventilation, and response to care were monitored throughout the procedure. The Colonoscope was introduced through the anus and advanced to the cecum, identified by appendiceal orifice and ileocecal valve. The colonoscopy was performed without difficulty. The patient tolerated the procedure well. The quality of the bowel preparation was excellent. Findings: The perianal and digital rectal examinations were normal. No other significant abnormalities were identified in a careful examination of the remainder of the colon. The exam was otherwise without abnormality on direct and retroflexion views. Impression: - The examination was otherwise normal on direct and retroflexion views. - No specimens collected. - The exam was otherwise normal to the cecum. Recommendation: - Patient has a contact number available for emergencies. The signs and symptoms of potential delayed complications were discussed with the patient. Return to normal activities tomorrow. Written discharge instructions were provided to the patient. - High fiber diet. - Discharge patient to home. - Continue present medications. - Repeat colonoscopy is not recommended due to current age (66 years or older) for screening purposes. - Return to referring physician. - The findings and recommendations were discussed with the patient. Procedure Code(s): --- Professional --- 81044, Colonoscopy, flexible; diagnostic, including collection of specimen(s) by brushing or washing, when performed (separate procedure) Diagnosis Code(s): --- Professional --- Z12.11, Encounter for screening for malignant neoplasm of colon CPT copyright 2019 [employer]. All rights reserved. The codes documented in this report are preliminary and upon stonecutter apprentice hand review may be revised to meet current compliance requirements. Harley Oliver MD Harley Oliver MD 08/27/2020 7:49:32 AM Electronically signed by Harley Oliver MD Number of Addenda: 0 Note Initiated On: 08/27/2020 7:29 AM Estimated Blood Loss: Estimated blood loss: none.
[2020-08-27 08:13] VITALS: BP 128/74
== END 2020-08-27 08:13 | disposition home or self-care (01) ==
LOC: M OPP 06:39
PROVIDERS: ATTEND Internal Medicine Gastroenterology
DX: Z12.11 Encounter for screening for malignant neoplasm of colon (principal); I10 Essential (primary) hypertension; E78.5 Hyperlipidemia, unspecified; E11.9 Type 2 diabetes mellitus without complications; R12 Heartburn; M19.90 Unspecified osteoarthritis, unspecified site; G47.30 Sleep apnea, unspecified; Z85.46 Personal history of malignant neoplasm of prostate; Z96.642 Presence of left artificial hip joint; Z88.2 Allergy status to sulfonamides; Z79.84 Long term (current) use of oral hypoglycemic drugs; Z79.899 Other long term (current) drug therapy

== ENCOUNTER → 2021-01-02 | Outpatient (REF) | payer MEDICARE ==
[~2021-01-02] MED LIST changes: -LISI-538 PO; +LISI20TA33 PO
== END ==
LOC: M PLALAB 10:00
PROVIDERS: ATTEND Nurse Practitioner Women's Health
DX: Z85.46 Personal history of malignant neoplasm of prostate (principal)

== ENCOUNTER → 2021-01-07 | Outpatient (REF) | payer MEDICARE ==
[2021-01-07 13:33] LABS: APPEARANCE, URINE HAZY (CLEAR); BACTERIA, URINE AUTO NEGATIVE (NEGATIVE); BILIRUBIN, URINE AUTO NEGATIVE (NEGATIVE); BLOOD, URINE BLOOD NEGATIVE (NEGATIVE); COLOR, URINE YELLOW (YELLOW); GLUCOSE, URINE (UA) AUTO NEGATIVE (NEGATIVE); KETONE, URINE AUTO NEGATIVE (NEGATIVE); LEUKOCYTE ESTERASE, URINE AUTO NEGATIVE (NEGATIVE); NITRITE, URINE AUTO NEGATIVE (NEGATIVE); PROTEIN, URINE AUTO NEGATIVE (NEGATIVE); RBC, URINE AUTO 0 /HPF (0-3); SPECIFIC GRAVITY URINE AUTO 1.021 (1.002-1.035); SQUAMOUS EPITHELIAL CELL UR AU 0 /HPF (0-6); UROBILINOGEN, URINE AUTO 0.2 mg/dL (0.0-2.0); WBC, URINE AUTO 0 /HPF (0-3)
== END ==
LOC: M SMT 13:01
PROVIDERS: ATTEND Nurse Practitioner Women's Health
DX: R39.89 Other symptoms and signs involving the genitourinary system (principal)
CPT/HCPCS: 81001; 87086; G0463

== ENCOUNTER → 2021-01-29 | Outpatient (REF) | payer MEDICARE | LOC: M LAB REF 12:15 | PROVIDERS: ATTEND Family Medicine | DX: D69.6 Thrombocytopenia, unspecified (principal) ==

== ENCOUNTER → 2021-07-11 | Outpatient (CLI) | payer MEDICARE | LOC: M PLALAB 09:26 | PROVIDERS: ATTEND Nurse Practitioner Women's Health | DX: Z85.46 Personal history of malignant neoplasm of prostate (principal) ==

== ENCOUNTER → 2021-07-18 | Outpatient (REF) | payer MEDICARE ==
[2021-07-18 13:38] LABS: APPEARANCE, URINE CLEAR (CLEAR); BACTERIA, URINE AUTO NEGATIVE (NEGATIVE); BILIRUBIN, URINE AUTO NEGATIVE (NEGATIVE); BLOOD, URINE BLOOD NEGATIVE (NEGATIVE); COLOR, URINE YELLOW (YELLOW); GLUCOSE, URINE (UA) AUTO 1+ mg/dL (NEGATIVE); KETONE, URINE AUTO TRACE mg/dL (NEGATIVE); LEUKOCYTE ESTERASE, URINE AUTO NEGATIVE (NEGATIVE); MUCUS, URINE SMALL (NEGATIVE); NITRITE, URINE AUTO NEGATIVE (NEGATIVE); PROTEIN, URINE AUTO NEGATIVE (NEGATIVE); RBC, URINE AUTO 0 /HPF (0-3); SPECIFIC GRAVITY URINE AUTO 1.021 (1.002-1.035); SQUAMOUS EPITHELIAL CELL UR AU 0 /HPF (0-6); UROBILINOGEN, URINE AUTO 0.2 mg/dL (0.0-2.0); WBC, URINE AUTO 0 /HPF (0-3)
== END ==
LOC: M SMT 12:51
PROVIDERS: ATTEND Nurse Practitioner Women's Health
DX: R39.89 Other symptoms and signs involving the genitourinary system (principal)
CPT/HCPCS: 81001; 87086; G0463

== ENCOUNTER → 2021-07-25 | Outpatient (CLI) | payer MEDICARE ==
--- NOTE | 2021-07-25 10:23 | REP ---
INDICATION: BLADDER PAIN W/ H/O PROSTATE CA COMPARISON: None TECHNIQUE: Real time B-mode ultrasound examination using curved array transducer. FINDINGS: Bladder is normal in appearance without wall thickening or mass lesion. Bilateral ureteral jets are identified. Prevoid bladder measures 10.8 x 7.0 x 8.6 cm (425) Postvoid bladder measures 3.1 x 2.1 x 1.9 cm (8 cc) Postvoid residual: 2% IMPRESSION: 1. Normal bladder ultrasound. <Electronically signed by Alf Angel > 07/25/21 [id number]
== END ==
LOC: M RAD 09:47
PROVIDERS: ATTEND Nurse Practitioner Women's Health
DX: R39.89 Other symptoms and signs involving the genitourinary system (principal); Z85.46 Personal history of malignant neoplasm of prostate

== ENCOUNTER → 2021-08-02 | Outpatient (REF) | payer MEDICARE ==
[2021-08-04 08:11] LABS: LDL DIRECT 76 mg/dL (0-99)
== END ==
LOC: M LAB REF 16:22
PROVIDERS: ATTEND Family Medicine
DX: E78.5 Hyperlipidemia, unspecified (principal)

== ENCOUNTER → 2022-07-01 | Outpatient (REF) | payer MEDICARE ==
[2022-07-01 11:41] LABS: APPEARANCE, URINE MANUAL CLEAR (CLEAR); BILIRUBIN, URINE MANUAL NEGATIVE (NEGATIVE); BLOOD URINE MANUAL NEGATIVE (NEGATIVE); COLOR, URINE MANUAL YELLOW (YELLOW); GLUCOSE, URINE (UA) MANUAL NEGATIVE (NEGATIVE); KETONE, URINE MANUAL 1+ mg/dL (NEGATIVE); LEUKOCYTE ESTERASE, URINE MAN NEGATIVE (NEGATIVE); NITRITE, URINE MANUAL NEGATIVE (NEGATIVE); PROTEIN, URINE MANUAL NEGATIVE (NEGATIVE); SPECIFIC GRAVITY,URINE MANUAL 1.015 (1.002-1.035); UROBILINOGEN, URINE MANUAL NORMAL (NORMAL)
== END ==
LOC: M SMT 10:14
PROVIDERS: ATTEND Nurse Practitioner Women's Health
DX: R39.89 Other symptoms and signs involving the genitourinary system (principal)

== ENCOUNTER → 2022-12-25 | Outpatient (REF) | payer MEDICARE ==
[2022-12-25 13:14] LABS: C REACTIVE PROTEIN QUANTITATIV < 0.40 MG/DL (<1.0)
[2022-12-25 13:15] LABS: RHEUMATOID FACTOR QUANT < 3.5 IU/ML (<14)
[2022-12-26 14:10] LABS: ANTINUCLEAR ANTIBODIES DIRECT Negative (Negative)
[2022-12-27 07:08] LABS: LDL DIRECT 73 mg/dL (0-99)
[2022-12-29 11:01] LABS: VITAMIN B12 LEVEL 284 PG/ML (211-911)
== END ==
LOC: M LAB REF 12:17
PROVIDERS: ATTEND Family Medicine
DX: M25.50 Pain in unspecified joint (principal); E78.5 Hyperlipidemia, unspecified; R41.3 Other amnesia

== ENCOUNTER → 2023-05-27 | Outpatient (REF) | payer MEDICARE | LOC: M SFHCADAM 09:30 | PROVIDERS: ATTEND Physician Assistant | DX: Z08 Encounter for follow-up examination after completed treatment for malignant neoplasm (principal); Z85.46 Personal history of malignant neoplasm of prostate ==

== ENCOUNTER → 2023-06-16 | Outpatient (REF) | payer MEDICARE | LOC: M LAB REF 16:19 | PROVIDERS: ATTEND Family Medicine | DX: E78.5 Hyperlipidemia, unspecified (principal) ==

== ENCOUNTER → 2023-09-30 | Outpatient (REF) | payer MEDICARE | LOC: M LAB REF 12:38 | PROVIDERS: ATTEND Family Medicine | DX: Z12.9 Encounter for screening for malignant neoplasm, site unspecified (principal); E11.9 Type 2 diabetes mellitus without complications; E78.5 Hyperlipidemia, unspecified ==

== ENCOUNTER → 2023-09-30 | Outpatient (REF) | payer MEDICARE ==
[2023-10-01 08:15] LABS: LDL DIRECT 62 mg/dL (0-99)
== END ==
LOC: M LAB REF 12:29
PROVIDERS: ATTEND Family Medicine
DX: E78.5 Hyperlipidemia, unspecified (principal)

== ENCOUNTER → 2024-05-30 | Outpatient (CLI) | payer MEDICARE | LOC: M PLALAB 07:36 | PROVIDERS: ATTEND Physician Assistant | DX: Z85.46 Personal history of malignant neoplasm of prostate (principal) ==

== ENCOUNTER → 2024-06-08 | Outpatient (REF) | payer MEDICARE ==
[2024-06-08 18:37] LABS: C REACTIVE PROTEIN QUANTITATIV < 0.40 MG/DL (<1.0)
[2024-06-08 18:40] LABS: RHEUMATOID FACTOR QUANT 5.5 IU/ML (<14)
[2024-06-10 15:07] LABS: ANA SCREEN, IFA NEGATIVE (NEGATIVE)
[2024-06-13 15:08] LABS: LYME TOTAL ANTIBODY CIA 3.29 Index (<=0.90)
[2024-06-13 19:02] LABS: LYME AB IGG BY CIA <= 0.90 Index (<=0.90); LYME AB IGM BY CIA 0.96 Index (<=0.90)
== END ==
LOC: M LAB REF 16:35
PROVIDERS: ATTEND Family Medicine
DX: R53.83 Other fatigue (principal); M25.50 Pain in unspecified joint

== ENCOUNTER → 2024-06-17 | Outpatient (CLI) | payer MEDICARE | LOC: M PLALAB 09:44 → M PLAIMG 09:44 | PROVIDERS: ATTEND Physician Assistant | DX: Z87.442 Personal history of urinary calculi (principal) ==

== ENCOUNTER → 2025-05-29 | Outpatient (REF) | payer MEDICARE ==
[~2025-05-29] MED LIST changes: +GLIP2.5T46 PO; -GLIP2.5T6 PO; -PRAV20TA2 PO; +PRAV20TA78 PO
== END ==
LOC: M SFHCADAM 07:37
PROVIDERS: ATTEND Physician Assistant
DX: Z85.46 Personal history of malignant neoplasm of prostate (principal)